=== PATIENT | female | born 1980 | race Caucasian/White ===

== ENCOUNTER → 2018-12-18 15:11 | Outpatient (CLI) | payer MEDICAID, SELFPAY ==
[2018-12-18 14:26] VITALS: BMI 25.0
[2018-12-18 15:47] LABS: Absolute Lymphocyte Count 2.02 X10^3/ul (0.83-4.51); Absolute Neutrophil Count 4.8 X10^3/uL (2.0-7.7); Basophil# 0.04 X10^3/uL; Basophil% 0.5 % (0-1); Eosinophil# 0.17 X10^3/uL; Eosinophils% 2.3 % (0-5); Hematocrit 40.3 % (37-47); Hemoglobin 13.3 g/dl (12.0-15.0); Lymphocyte # 2.02 X10^3/ul (4.0); Mean Corpuscular Hgb 29.4 pg (27.0-32.0); Mean Platelet Vol. 9.8 fl (6.2-12.0); Monocyte# 0.48 X10^3/uL; Monocyte% 6.4 % (0-10); Neutrophil # 4.75 X10^3/uL (2.7-7.7); Neutrophil % 63.7 % (47-70); Platelet Count 354 K/mm3 (150-450); RBC Distribution Width CV 12.9 % (11.6-14.6); RBC Distribution Width SD 42.1 fl (35.1-43.9); Red Blood Count 4.53 M/mm3 (4.2-5.4); White Blood Count 7.5 K/mm3 (4.4-11.0)
[2018-12-18 15:48] LABS: POSITIVE COUNT NO; POSITIVE DIFFERENTIAL NO; POSITIVE MORPHOLOGY NO
[2018-12-18 16:21] LABS: Thyroid Stim Hormone (TSH) 1.71 uIU/mL (0.358-3.74)
[2018-12-18 17:09] LABS: HIV - WCH Non-Reactive (Nonreactive)
[2018-12-18 19:05] LABS: Chlamydia Trachomatis by PCR Negative (Negative); Neisserai gonorrhoeae by PCR Negative (Negative); Probe Check PASS; Sample Adequacy Control PASS; Specimen Processing Control PASS
[2018-12-21 02:57] LABS: Rapid Plasmin Reagin (RPR) NONREACTIVE (NONREACTIVE)
[2018-12-22 00:12] LABS: HCV Quant. RNA PCR HCV Not Detected IU/mL (.); HEPATITIS B SURFACE AG Negative (Negative); Hepatitis A IgM Antibody Negative (Negative); Hepatitis B Core AB IgM Negative (Negative)
[2018-12-23 13:58] LABS: Hep C Antibodies <0.1 s/co ratio (0.0-0.9)
[2018-12-24 14:07] LABS: HPV Genotype 16, Aptima Negative (Negative)
[2018-12-25 12:26] LABS: HPV APTIMA, High Risk Positive (Negative); HPV Genotype 18,45 Aptima Negative (Negative)
== END ==
PROVIDERS: Family Provider Internal Medicine; PCP Internal Medicine; Referring Provider Obstetrics & Gynecology; Visit Provider Obstetrics & Gynecology
DX: N93.9 Abnormal uterine and vaginal bleeding, unspecified (principal); Z11.3 Encounter for screening for infections with a predominantly sexual mode of transmission; Z12.4 Encounter for screening for malignant neoplasm of cervix
CPT/HCPCS: 36415; 80074; 84439; 84443; 85025; 86592; 86703; 87491; 87522; 87591; 87624; 88175; G0145

== ENCOUNTER → 2018-12-24 12:14 | Outpatient (CLI) | payer MEDICAID, SELFPAY ==
[2018-12-18 14:26] VITALS: BMI 25.0
[2018-12-24 11:26] VITALS: BMI 25.0
--- NOTE | 2018-12-24 12:16 | US_ITS ---
STUDY: ULTRASOUND OF THE FEMALE PELVIS - COMPLETE REASON FOR EXAM: Female, 38 years old. Dysfunctional uterine bleeding since 2014. LMP: December 06, 2018. TECHNIQUE: Transabdominal and Transvaginal TECHNICAL QUALITY: Adequate. COMPARISON: CT of the abdomen and pelvis, August 01, 2016. FINDINGS: The uterus is anteverted and is in a midline position. The uterus measures 9.5 x 5.5 x 4.7 cm. Nabothian cyst is seen in the cervix. The endometrium measures 12 mm in thickness, and is heterogeneous (striated). There is no demonstrated endometrial mass. There are at least 2 fibroids identified. There is a 0.9 x 0.9 x 1.1 cm hypoechoic fibroid in the anterior right frontal wall as well as a 0.7 x 0.8 x 0.6 cm fibroid in the anterior wall. I.U.D. - The patient does not have an I.U.D. The right ovary is visualized. The right ovary measures 3.0 x 2.9 x 2.1 cm cm. There is no right ovarian cyst or ovarian mass. There is no visualized right adnexal mass or complex lesion. There is normal arterial and normal venous vascularity. The left ovary is visualized. The left ovary measures 3 x 2.5 x 2.2 cm. There is a 1.8 x 1.1 x 1.7 cm cyst. There is no visualized left adnexal mass or complex lesion. There is normal arterial and normal venous vascularity. There is no fluid in the cul-de-sac. The pre void volume of the bladder was ml. The post void volume of the bladder was ml. Polycystic ovary disease: No. US/Pelvic (Non ) IMPRESSION: 1. Prominent endometrium. Correlate with patient's menstrual cycle. 2. Normal adnexa. 3. Subserosal uterine fibroids. Electronically Signed: Dm Hanna DO at 20:44 EDT Tel [phone], Service support ,
--- NOTE | 2018-12-24 12:16 | US_ITS ---
STUDY: ULTRASOUND OF THE FEMALE PELVIS - COMPLETE REASON FOR EXAM: Female, 38 years old. Dysfunctional uterine bleeding since 2014. LMP: December 06, 2018. TECHNIQUE: Transabdominal and Transvaginal TECHNICAL QUALITY: Adequate. COMPARISON: CT of the abdomen and pelvis, August 01, 2016. FINDINGS: The uterus is anteverted and is in a midline position. The uterus measures 9.5 x 5.5 x 4.7 cm. Nabothian cyst is seen in the cervix. The endometrium measures 12 mm in thickness, and is heterogeneous (striated). There is no demonstrated endometrial mass. There are at least 2 fibroids identified. There is a 0.9 x 0.9 x 1.1 cm hypoechoic fibroid in the anterior right frontal wall as well as a 0.7 x 0.8 x 0.6 cm fibroid in the anterior wall. I.U.D. - The patient does not have an I.U.D. The right ovary is visualized. The right ovary measures 3.0 x 2.9 x 2.1 cm cm. There is no right ovarian cyst or ovarian mass. There is no visualized right adnexal mass or complex lesion. There is normal arterial and normal venous vascularity. The left ovary is visualized. The left ovary measures 3 x 2.5 x 2.2 cm. There is a 1.8 x 1.1 x 1.7 cm cyst. There is no visualized left adnexal mass or complex lesion. There is normal arterial and normal venous vascularity. There is no fluid in the cul-de-sac. The pre void volume of the bladder was ml. The post void volume of the bladder was ml. Polycystic ovary disease: No. US/Transvaginal Non- IMPRESSION: 1. Prominent endometrium. Correlate with patient's menstrual cycle. 2. Normal adnexa. 3. Subserosal uterine fibroids. Electronically Signed: Dm Hanna DO at 20:44 EDT Tel [phone], Service support ,
--- NOTE | 2018-12-24 12:26 | US_ITS ---
STUDY: THYROID ULTRASOUND REASON FOR EXAM: Female, 38 years old. Nodule felt by doctor. TECHNIQUE: Ultrasound evaluation of the thyroid was performed with real-time and static elliott-scale imaging. COMPARISON: None. FINDINGS: RIGHT LOBE: The right lobe of the thyroid gland measures 5.8 x 2.0 x 2.1 cm. There is a homogeneous echotexture. There is a 2.8 x 1.8 x 1.7 cm mixed solid and cystic nodule in the lower pole. Normal vascularity on Doppler imaging. LEFT LOBE: The left lobe of the thyroid gland measures 6.2 x 3.2 x 2.5 cm. There is a homogeneous echotexture. There is a large spongiform mass in the lower pole measuring 3.3 x 2.1 x 3.2 cm. Smaller cystic lesion with solid nodule is seen in the mid thyroid. This measures 0.4 x 0.3 x 0.4 cm. There is a small hypoechoic nodule also seen in the anterior mid thyroid measuring approximately 4 mm in diameter. Normal vascularity on Doppler imaging. ISTHMUS: The isthmus measures 0.3 cm. The regional lymph nodes are normal. US/Thyroid IMPRESSION: Bilateral thyroid nodules. The most suspicious nodule can arise as a TR 2 by ACR TIRADS classification. This is not suspicious. No FNA required. Electronically Signed: Dm Hanna DO at 20:23 EDT Tel [phone], Service support ,
== END ==
PROVIDERS: Family Provider Internal Medicine; PCP Internal Medicine; Referring Provider Obstetrics & Gynecology; Visit Provider Obstetrics & Gynecology
DX: N93.9 Abnormal uterine and vaginal bleeding, unspecified (principal); E04.1 Nontoxic single thyroid nodule
CPT/HCPCS: 76536; 76830; 76856; 93976

== ENCOUNTER → 2018-12-27 08:19 | Outpatient (CLI) | payer MEDICAID, SELFPAY ==
[2018-12-24 11:26] VITALS: BMI 25.0
--- NOTE | 2018-12-27 08:32 | EKG12_ITS ---
Test Reason : Blood Pressure : / mmHG Vent. Rate : 055 BPM Atrial Rate : 055 BPM P-R Int : 130 ms QRS Dur : 090 ms QT Int : 438 ms P-R-T Axes : 103 083 056 degrees QTc Int : 419 ms Sinus bradycardia Otherwise normal ECG Confirmed by MARIAN PAIZ, PADILLA ([id number]), editorial director GALEN BALTAZAR ([id number]) on 12/28/2018 1:48:50 PM Referred By: Orville Nelson Confirmed By:ERI FONSECA MD
[2018-12-27 10:28] LABS: ALB/GLOB Ratio 0.9 RATIO (0.9-2.4); AST(SGOT) 10 U/L (15-37); Alanine Aminotransfer ALT/SGPT 15 U/L (13-56); Albumin, Serum 3.6 g/dL (3.2-5.0); Alkaline Phosphatase 52 U/L (45-117); Anion Gap 6 (5-15); BUN 14 mg/dL (7-18); BUN/Creat Ratio 18.3 RATIO (10-20); Calcium,Total 8.6 mg/dL (8.5-10.1); Chloride 107 mmol/L (98-107); Cholesterol 145 mg/dL (200); Creatinine, Serum 0.76 mg/dL (0.55-1.02); EST Glomerular Filtration Rate 90 mL/min (>60); Est Glom Filt Rate - Afr Amer 109 mL/min (>60); Globulin 3.9 g/dL (2.2-4.2); Glucose 77 mg/dL (74-106); High Density Lipoprotein 53 mg/dL; Protein, Total 7.5 g/dL (6.4-8.2); Sodium Level 139 mmol/L (136-145); Triglycerides 74 mg/dL; Very Low Density Lipoprotein 15 mg/dL (5-40)
== END ==
PROVIDERS: Family Provider Internal Medicine; PCP Internal Medicine; Referring Provider Internal Medicine; Visit Provider Internal Medicine
DX: I10 Essential (primary) hypertension (principal)
CPT/HCPCS: 36415; 80053; 80061; 93005

== ENCOUNTER → 2019-01-05 08:00 | Outpatient (CLI) | payer MEDICAID, SELFPAY ==
--- NOTE | 2019-01-05 08:00 | ASPS_PTH ---
PATIENT: CHAPIS OLIVO LOC: [facility] U#:[id number] AGE/SX: 44/F ROOM: RE01/05/[address]: Dr. Trey Sotelo MD : 1980 BED: DIS: SPEC #: [id number] RECD: 01/05/19 11:11 STATUS: DANO REBabak #: [id number] [place]: 01/05/19 08:[address]: Trey Sotelo DEPT: CYTOLOGY RECD BY: Adrián Avendano ENTERED: 01/07/19 09:33 SP TYPE: ASPIRATION OTHR DR: Dr. Orville Nelson MD Tissues: A - Thyroid gland, NOS B - Thyroid gland, NOS Procedures: Special Stain Group II Cytology Other HEADER OPERATION: Ultrasound-guided fine needle aspiration of bilateral thyroid nodule PRE-OP DIAGNOSIS: Multinodular goiter (nontoxic) E04.2 TISSUE SUBMITTED: A - Left thyroid fine needle aspiration slides x12, B - Right thyroid fine needle aspiration slides x12 DIAGNOSIS CYTOLOGY A. Left thyroid nodule, ultrasound-guided FNA (smear): Consistent with benign follicular nodule, favor colloid nodule. Adequate for evaluation. B. Right thyroid nodule, ultrasound-guided FNA (smear): Consistent with benign follicular nodule with cystic changes, favor colloid nodule with cystic changes. Adequate for evaluation. GABO:ralph 01/08/19 COMMENT Correlation with clinical, radiologic findings and appropriate follow up are necessary. CYTOLOGY STUDY Slides are reviewed. A. The specimen consists of numerous clusters of benign follicular cells and abundant colloid. B. The specimen consists of numerous macrophages, numerous clusters of benign follicular cells, Hurthle cells and abundant colloid. CYTOLOGY GROSS A - Received are 12 smears labeled with the patient's name and designated per the requisition as left thyroid FNA. Submitted for staining. B - Received are 12 smears labeled with the patient's name and designated per the requisition as right thyroid FNA. Submitted for staining. / 01/07/19 TC: 5 CPT: 03191 x2
[2019-01-05 08:32] VITALS: BMI 25.0
== END ==
PROVIDERS: Family Provider Internal Medicine; PCP Internal Medicine; Referring Provider Surgery; Visit Provider Surgery
DX: E04.2 Nontoxic multinodular goiter (principal)
CPT/HCPCS: 88161; 88313

== ENCOUNTER 2019-03-07 07:26 | Day surgery (SDC) | payer MEDICAID, SELFPAY ==
[2019-01-28 13:41] VITALS: BMI 25.0
[2019-02-19 13:38] VITALS: BMI 26.3
[2019-03-07] VITALS (9 sets, daily range): BP systolic 108–142; BP diastolic 71–88; PULSE 71–99; RESP 16–18; TEMP 36.1–36.7; O2SAT 96–100; BMI 26.2
--- NOTE | 2019-03-07 | HYST_PTH ---
PATIENT: CHAPIS OLIVO LOC: [facility] U#:[id number] AGE/SX: 38/F ROOM: RE03/07/[address]: Dr. Kym Hilton MD : 1980 BED: DIS: 03/08/2019 SPEC #: [id number] RECD: 03/07/19 14:26 STATUS: DANO REBabak #: [id number] [place]: 03/07/19 00:[address]: Kym Hilton DEPT: SURGICAL PATHOLOGY RECD BY: Jaun Sawyer ENTERED: 03/07/19 14:26 SP TYPE: HYSTERECT OTHR DR: Dr. Orville Nelson MD Tissues: Uterus, NOS Procedures: Surgery Specimen Level V HEADER OPERATION: ERAS, vaginal hysterectomy, bilateral salpingectomy PRE-OP DIAGNOSIS: Abnormal uterine bleeding TISSUE SUBMITTED: Uterus, bilateral fallopian tubes MICROSCOPIC DIAGNOSIS Uterus, hysterectomy: Cervix - squamous metaplasia, nabothian cysts and mild chronic inflammation. Endometrium - proliferative endometrium with focal stromal breakdown Myometrium - leiomyomas and focal superficial adenomyosis. Right and left fallopian tubes - benign paratubal cysts. AM:darrius 03/08/19 MICROSCOPIC DESCRIPTION Slides are reviewed. GROSS DESCRIPTION Received in fixative is one container labeled with the patient's name and designated uterus, bilateral fallopian tubes. The specimen consists of a hysterectomy specimen consisting of uterus with cervix and detached bilateral fallopian tubes. The uterus with cervix weighs 87 gm and measures 9 x 6 x 4.5 cm. A few subserosal nodules are noted. The serosal surface is berger, glistening. The ectocervical mucosa is unremarkable. The external os is oval in contour. The endocervical canal measures 3 cm in length and the endocervical mucosa is unremarkable. The triangular endometrial cavity measures 4.5 cm in length and up to 3 cm in width. The endometrium is berger, glistening without any mass lesion and measures 2.1 cm in thickness. Sections of the uterine wall reveal multiple subserosal nodular masses. The largest mass measures 1.5 cm in greatest dimension. The uninvolved uterine wall measures up to 2 cm in thickness. Also present in the container are two detached bilateral fallopian tubes measuring 5 cm in length and 0.5 cm in diameter and 3.5 cm in length and 0.5 cm in diameter. They are not identified as right or left. The fimbrial ends are identified. Sections reveal unremarkable cut surfaces. One of the fallopian tubes show a paratubal cyst measuring 1 cm in greatest dimension. Rubber Compounder Formulator sections are submitted in nine cassettes as follows: 1 - anterior cervix, 2 - posterior cervix, 3 & 4 - anterior uterine wall, 5 & 6 - posterior uterine wall, 7 - nodular masses, 8 & 9 - bilateral fallopian tubes with each containing one fallopian tube, 9 also contains the paratubal cyst. / SJ:darrius 03/07/19 TC:1 CPT: 49849
--- NOTE | 2019-03-07 04:47 | PCM.HPOB.BLA ---
- Problem List (1) Abnormal Pap smear of cervix Status: Acute (2) Abnormal Pap smear of cervix Status: Acute Comment: repeat pap 12/2019 (3) Anxiety and depression Status: Acute (4) Back problem Status: Acute (5) Fatigue Status: Acute (6) H/O tubal ligation Status: Acute Comment: 2014 (7) History of dental surgery Status: Acute (8) Hx of biopsy Status: Acute Comment: FNA bilateral thyroid- 01/05/19 (9) Thyroid nodule Status: Acute (10) Abnormal uterine bleeding Status: Chronic Comment: plan tv bs (11) Hypertension Status: Chronic History and Physical Date of Admission: 03/07/19 ADDENDUM Addendum entered and electronically signed by Kym Hilton MD 02/19/19 14:06: Assessment & Plan Problems 1. Abnormal uterine bleeding N93.9 plan [facility] bs 2. Hypertension I10 3. Abnormal Pap smear of cervix R87.619 repeat pap 12/2019 Plan - Kym Hilton MD plan [facility] bs. After discussing the patient's diagnosis and treatment plan options, patient wishes to proceed with surgical management. I have discussed with the patient the risks, benefits, and alternatives of the procedure which include but are not limited to risks of anesthesia, bleeding, infection, possible damage to bowel, bladder, or surrounding vasculature which could lead to additional surgery to evaluate any complications. Patient agrees to procedure and wishes to proceed. ACOG/uptodate references given for additional information regarding procedure. Intake Vital Signs 02/19/19 Height 5 ft 1 in 02/19/19 Weight: 139 lb 8 oz 02/19/19 Body Mass Index (BMI) 26.3 02/19/19 Blood Pressure 136/98 H 02/19/19 Body Mass Index (BMI) 25.0 01/30/19 Body Mass Index (BMI) 25.0 Intake Visit Reasons: CLARI DUVAL BS Forestry Patrolman Required: No Is patient in pain?: No Allergies No Known Allergies Allergy (Verified 02/19/19 13:39) Medications blood pressure monitor kit See Rx Instructions .ROUTE .MEDSUPPLY #1 ea 12/24/18 [Rx Confirmed 02/19/19] hydrochlorothiazide 25 mg tablet 25 mg PO DAILY #30 tab 12/24/18 [Rx Confirmed 02/19/19] nicotine 14 mg/24 hr daily transdermal patch 14 mg TRANSDERMAL QDAY #42 patch 02/01/19 [Rx Confirmed 02/19/19] nicotine 7 mg/24 hr daily transdermal patch 1 patch TRANSDERMAL Q24H #14 patch 02/01/19 [Rx Confirmed 02/19/19] Post menopausal: No Patient : No : No PFSH Medical History Back problem (Acute) Fatigue (Acute) Hypertension (Chronic) Anxiety and depression (Acute) Abnormal Pap smear of cervix (Acute) Surgical History Hx of biopsy (Acute) History of dental surgery (Acute) H/O tubal ligation (Acute) Family History Mother Hypertension Anxiety and depression Cancer pre cervical cancer Father Diabetes Heart disease Hypertension Anxiety and depression Hyperlipemia Myocardial infarction, Onset Age: 40 Daughter Cancer ALL Social History (Updated 02/19/19 @ 14:06 by Kym Hilton MD) Smoking Status: Current every day smoker Tobacco: How many years used: 25 alcohol intake: current details: social substance use type: marijuana caffeine: Yes what type of physical activity do you participate in: none seatbelt use: always do you feel safe at home: Yes HPI [facility] BS: Details: CHAPIS OLIVO is a 38 year old who presents for preop appointment. she is planning a [facility] bs. Pregancy History 4 Elective abortions Hx Para 4 Spontaneous abortions Hx # Term Pregnancies Ectopic pregnancies Hx # Pregnancies Multiple births # of living children Past Pregnancies Del. Date Name GA/Weeks Outcome Route Bth Weight Infant Gen Labor Lgth Anesthesia Del Locatn Provider FOB Unknown 1998 Pattie Unknown Patricio 2004 Unknown Thierry Sung 2013 Unknown Diana 2014 Assessment & Plan Problems 1. Abnormal uterine bleeding N93.9 plan [facility] bs 2. Hypertension I10 3. Abnormal Pap smear of cervix R87.619 repeat pap 12/2019 Plan plan [facility] bs. After discussing the patient's diagnosis and treatment plan options, patient wishes to proceed with surgical management. I have discussed with the patient the risks, benefits, and alternatives of the procedure which include but are not limited to risks of anesthesia, bleeding, infection, possible damage to bowel, bladder, or surrounding vasculature which could lead to additional surgery to evaluate any complications. Patient agrees to procedure and wishes to proceed. ACOG/uptodate references given for additional information regarding procedure. Coding Level of Care Code No Charge Diagnoses Abnormal uterine bleeding N93.9 Hypertension I10 Abnormal Pap smear of cervix R87.619
[2019-03-07 07:53] LABS: Internal QC Validated? YES +Cl - CLEAR BKGD; Pregnancy, Urine Negative Negative
[2019-03-07 07:56] LABS: Hematocrit 45.6 % (37-47); Mean Corp Hgb Conc 32.9 g/dL (32-36); Mean Corpuscular Hgb 29.5 pg (27.0-32.0); Mean Corpuscular Volume 89.6 fL (81-99); Mean Platelet Vol. 9.4 fl (6.2-12.0); Platelet Count 363 K/mm3 (150-450); RBC Distribution Width CV 12.2 % (11.6-14.6); RBC Distribution Width SD 40.4 fl (35.1-43.9); Red Blood Count 5.09 M/mm3 (4.2-5.4); White Blood Count 8.5 K/mm3 (4.4-11.0)
[2019-03-07] MEDS: Phenazopyridine 95 MG Tablet 190 MG PO (08:11)
[2019-03-07] MEDS: Scopolamine 1mg/72hr Patch 1 PATCH TRANSDERM. (08:13)
[2019-03-07] MEDS: dexAMETHasone 10 MG/ML Vial 8 MG IV (08:15)
[2019-03-07] MEDS: Magnesium Sulfate 4gm/100mL 4 GM/100 ML IV.SOLN. IV (08:16)
[2019-03-07 08:21] LABS: Bedside Glucose 91 mg/dL (70-110)
[2019-03-07] MEDS: Enoxaparin 40 MG/0.4 ML Syringe SC (08:27)
[2019-03-07] MEDS: Lactated Ringers 1,000 ML 40 ML IV (08:27)
[2019-03-07] MEDS: Cefazolin 2 GM in 0.9% Normal Saline 100 ML IV (11:04)
[2019-03-07] MEDS: Vasopressin 20 UNITS/ML Vial (12:15)
[2019-03-07] MEDS: Ketorolac 30 MG/ML Syringe IM (13:42)
--- NOTE | 2019-03-07 13:52 | OP.PCM_ITS ---
Problem List (1) Abnormal Pap smear of cervix Status: Acute (2) Abnormal Pap smear of cervix Status: Acute Comment: repeat pap 12/2019 (3) Anxiety and depression Status: Acute (4) Back problem Status: Acute (5) Fatigue Status: Acute (6) H/O tubal ligation Status: Acute Comment: 2014 (7) History of dental surgery Status: Acute (8) Hx of biopsy Status: Acute Comment: FNA bilateral thyroid- 01/05/19 (9) Thyroid nodule Status: Acute (10) Abnormal uterine bleeding Status: Chronic Comment: plan [facility] bs (11) Hypertension Status: Chronic Report of Operation Date of Procedure: 03/08/19 Pre-Operative Diagnosis: aub Post-Operative Diagnosis: same Surgery/Procedure Performed:: tvh bs Description of Surgical Findings:: nl uterus tubes, apical prolapse grade I enlarged genital hiatus cyber transport systems specialist: Chana Hillman Type of Anesthesia:: General Special Medications: none Specimen's removed: uterus tubes Drains: kang Estimated Blood Loss (mL): 100 Fluids Replaced: crystalloid Description of Procedure: Patient was taken to the operating room and was placed under general anesthesia was prepped and draped in normal sterile fashion in the dorsal lithotomy position. Preoperative antibiotics and SCDs and Kang catheter was placed inside the bladder. Weighted speculum was placed in the vagina and the anterior and posterior lip of the cervix was grasped with 2 Emily clamps and circumferentially injected with dilute vasopressin. A circumferential incision was made with a scalpel and the posterior cul-de-sac was entered into sharply and a longneck speculum was placed. The anterior cul-de-sac was also dissected down and entered into sharply and the uterosacral ligaments were clamped cut and suture ligated bilaterally followed by the cardinal ligaments which were Clamped cut and suture ligated bilaterally with 0 Monocryl. The uterus serially descended and progressive bites were taken bilaterally up to the level of the utero-ovarian ligament bilaterally which was clamped transected and double ligated with 0 Monocryl suture and 0 Vicryl free tie. Bilateral fallopian tubes and ovaries were well visualized and noted be within normal limits and the bilateral fallopian tubes were transected across the base with a Rosy clamp and removed and sutured with 0 Vicryl suture. Excellent hemostasis was noted. Posterior peritoneum was reapproximated with 2-0 Vicryl and a modified Turner stitch was placed through the posterior vaginal cuff and bilateral uterosacral ligaments across the posterior cul-de-sac skimming along to provide apical support to the vagina. The vagina was closed with [id number] 0 Vicryl pop offs including the posterior and anterior peritoneum in the reapproximation. Excellent hemostasis was noted. All instruments removed from the vagina clear urine was noted at the end of the procedure and patient was awoken and taken recovery in stable condition. Grafts/Implants Used: none - Complications none - Admit VTE Documentation VTE Present on Admission: No
[2019-03-07] MEDS: Lactated Ringers 1,000 ML 70 ML IV (14:07)
[2019-03-07] MEDS: oxyCODONE 5 MG Tablet PO ×3 (14:52→20:59)
[2019-03-07] MEDS: Ondansetron ODT 4 MG Tablet PO ×2 (16:00→23:16)
[2019-03-07] MEDS: Acetaminophen 500 MG Tablet 1000 MG PO ×2 (17:44→23:17)
[2019-03-07] MEDS: Ketorolac 30 MG/ML Syringe IV ×2 (17:44→23:39)
[2019-03-08 00:05] VITALS: BP 126/77; PULSE 77; RESP 16; TEMP 36.8; O2SAT 96
[2019-03-08 05:35] VITALS: BP 128/64; PULSE 78; RESP 16; TEMP 36.9; O2SAT 96
[2019-03-08] MEDS: Acetaminophen 500 MG Tablet 1000 MG PO ×2 (05:37→12:46)
[2019-03-08] MEDS: Ketorolac 30 MG/ML Syringe IV ×2 (05:37→12:48)
[2019-03-08 06:42] LABS: Hematocrit 34.1 % (37-47); Hemoglobin 11.2 g/dL (12.0-15.0); Mean Corp Hgb Conc 32.8 g/dL (32-36); Mean Corpuscular Hgb 29.5 pg (27.0-32.0); Mean Corpuscular Volume 89.7 fL (81-99); Mean Platelet Vol. 9.8 fl (6.2-12.0); Platelet Count 280 K/mm3 (150-450); RBC Distribution Width CV 12.8 % (11.6-14.6); White Blood Count 16.9 K/mm3 (4.4-11.0)
[2019-03-08] MEDS: Docusate Sodium 100 MG Capsule PO (08:59)
[2019-03-08] MEDS: Enoxaparin 40 MG/0.4 ML Syringe SC (08:59)
--- NOTE | 2019-03-08 08:59 | PCM.PN.OB ---
Subjective: patient recovering well, denies CP, SOB, N, or V. patient is ambulating, voiding ,tolerating adequate po, and pain is controlled with oral medications. - Physical Exam Vital Signs Temp Pulse Resp BP Pulse Ox 98.5 F 78 16 128/64 H 96 03/08/19 05:35 03/08/19 05:35 03/08/19 05:35 03/08/19 05:35 03/08/19 05:35 Oxygen Flow Rate (L/min) 6 Oxygen Delivery Method Room Air Weight: 139 lb 1.787 oz Body Mass Index (BMI) 26.2 Intake and Output for Last 24 Hours 03/06/19 03/07/19 03/08/19 23:59 23:59 23:59 Intake Total 596.45 / 596.45 600 / 600 Output Total 500 / 800 700 / 700 Balance 96.45 / -203.55 -100 / -100 Laboratory Tests Past 24 Hrs 03/07/19 03/08/19 07:45 06:32 WBC 16.9 H RBC 3.80 L Hgb 11.2 L Hct 34.1 L MCV 89.7 MCH 29.5 MCHC 32.8 RDW Std Deviation 42.0 RDW Coeff of Pura 12.8 Plt Count 280 MPV 9.8 Blood Type O POSITIVE Antibody Screen NEGATIVE Medical Necessity - Tobacco Use Smoking Status: Current every day smoker Assessment/Plan All Active Problems (Last Updated 02/19/19 @ 14:03 by Kym Hilton MD) Hx of biopsy (Acute) Back problem (Acute) Fatigue (Acute) History of dental surgery (Acute) Anxiety and depression (Acute) Abnormal Pap smear of cervix (Acute) H/O tubal ligation (Acute) Abnormal Pap smear of cervix (Acute) Thyroid nodule (Acute) Hypertension (Resolved) patient is s/p tvh POD 1 1. routine ERAS protocol postop care- increase ambulation, encourage oral intake and oral control of pain. lovenox and scds for dvt prophylaxis, patient stable for discharge to home.
--- NOTE | 2019-03-08 09:00 | PCM.DC.VHY ---
Discharge Diet: No Restrictions Discharge Activity: Return to Normal Activity, May Not Drive, May Shower May resume sexual activity in: 6-8 weeks Call your doctor if your incision/area has: Continuous Slow Oozing, Sudden Increased Bleeding, Increased Pain/ Swelling, Increased Redness, Foul Smelling Discharge Call your doctor if you observe: Fever of 101 or Higher, Inability to urinate, Inability to have a bowel movement, Using more than one pad per hour Allergies/Adverse Reactions: Allergies No Known Allergies Allergy (Verified 03/07/19 07:29) Medications to take at Discharge hydrochlorothiazide 25 mg tablet 25 mg PO DAILY #30 tab 12/24/18 nicotine 14 mg/24 hr daily transdermal patch 14 mg TRANSDERMAL QDAY #42 patch 02/01/19 nicotine 7 mg/24 hr daily transdermal patch 1 patch TRANSDERMAL Q24H #14 patch 02/01/19 Naproxen [Naprosyn] 250 - 500 mg PO Q8H PRN PRN #30 tab 03/08/19 Oxycodone HCl/Acetaminophen [Percocet 5-325] 1 - 2 tab PO Q4H PRN PRN 7 Days #15 tab 03/08/19 The following prescriptions were given: Naproxen [Naprosyn] 250 - 500 mg PO Q8H PRN PRN #30 tab PRN Reason: MILD PAIN Transmission Status: Received by [facility] Oxycodone HCl/Acetaminophen [Percocet 5-325] 1 - 2 tab PO Q4H PRN PRN 7 Days #15 tab PRN Reason: Pain Transmission Status: Received by [facility] Primary Care Physician: Orville Nelson MD [Primary Care Provider] - Test Results: Test results from this visit will be discussed in further detail at your follow-up appointment, if applicable. Please Follow Up With: Kym Hilton MD - [phone]
[2019-03-08] MEDS: oxyCODONE 5 MG Tablet PO (09:08)
[2019-03-08 09:13] VITALS: BP 113/74; PULSE 59; RESP 16; TEMP 37; O2SAT 98
[2019-03-08 13:01] VITALS: BP 118/75; PULSE 60; RESP 16; TEMP 36.7; O2SAT 100
== END 2019-03-08 15:05 | disposition home or self-care (01) ==
LOC: SDC 07:27 → AC 07:29 → MS3 08:02
PROVIDERS: Family Provider Internal Medicine; PCP Internal Medicine; Referring Provider Obstetrics & Gynecology; Visit Provider Obstetrics & Gynecology
PROC: (CPT 58260; principal; 2019-03-07 09:15)
DX: N93.9 Abnormal uterine and vaginal bleeding, unspecified (principal); N88.8 Other specified noninflammatory disorders of cervix uteri; N80.0 Endometriosis of uterus; I10 Essential (primary) hypertension; Z79.899 Other long term (current) drug therapy; F17.200 Nicotine dependence, unspecified, uncomplicated
CPT/HCPCS: 00940; 58262; 36415; 81025; 82962; 85027; 86850; 86900; 86901; 88307; 94762; 99406; J7120; J2405

== ENCOUNTER → 2019-08-29 15:15 | Outpatient (CLI) | payer MEDICAID, SELFPAY ==
[2019-08-29 14:39] VITALS: BMI 26.2
[2019-08-29 16:47] LABS: Absolute Lymphocyte Count 2.19 X10^3/uL (0.83-4.51); Absolute Neutrophil Count 4.8 X10^3/uL (2.0-7.7); Basophil# 0.05 X10^3/uL; Basophil% 0.6 % (0-1); Eosinophil# 0.19 X10^3/uL; Eosinophils% 2.4 % (0-5); Hematocrit 42.9 % (37-47); Hemoglobin 13.9 g/dL (12.0-15.0); Lymphocyte # 2.19 X10^3/ul (4.0); Lymphocyte % 28.1 % (19-41); Mean Corp Hgb Conc 32.4 g/dL (32-36); Mean Corpuscular Hgb 27.8 pg (27.0-32.0); Mean Corpuscular Volume 85.8 fL (81-99); Mean Platelet Vol. 9.8 fl (6.2-12.0); Monocyte# 0.54 X10^3/uL; Monocyte% 6.9 % (0-10); NRBC Flagged by Analyzer 0 % (0-5); Neutrophil # 4.79 X10^3/uL (2.7-7.7); Neutrophil % 61.7 % (47-70); Platelet Count 357 K/mm3 (150-450); RBC Distribution Width CV 14.4 % (11.6-14.6); RBC Distribution Width SD 45.2 fl (35.1-43.9); White Blood Count 7.8 K/mm3 (4.4-11.0)
[2019-08-29 17:03] LABS: ALB/GLOB Ratio 0.8 RATIO (0.9-2.4); AST(SGOT) 23 U/L (15-37); Alanine Aminotransfer ALT/SGPT 42 U/L (13-56); Albumin, Serum 3.7 g/dL (3.2-5.0); Alkaline Phosphatase 79 U/L (45-117); Anion Gap 6 (5-15); BUN 12 mg/dL (7-18); BUN/Creat Ratio 14.4 RATIO (10-20); Calcium,Total 8.9 mg/dL (8.5-10.1); Chloride 101 mmol/L (98-107); Cholesterol 173 mg/dL (200); Creatinine, Serum 0.84 mg/dL (0.55-1.02); EST Glomerular Filtration Rate 81 mL/min (>60); Est Glom Filt Rate - Afr Amer 98 mL/min (>60); Globulin 4.8 g/dL (2.2-4.2); Glucose 71 mg/dL (74-106); High Density Lipoprotein 51 mg/dL; Potassium 3.5 mmol/L (3.5-5.1); Protein, Total 8.5 g/dL (6.4-8.2); Sodium Level 135 mmol/L (136-145); Triglycerides 129 mg/dL; Very Low Density Lipoprotein 26 mg/dL (5-40)
== END ==
PROVIDERS: PCP Internal Medicine; Referring Provider Internal Medicine; Visit Provider Internal Medicine
DX: F41.8 Other specified anxiety disorders (principal); I10 Essential (primary) hypertension
CPT/HCPCS: 36415; 80053; 80061; 85025

== ENCOUNTER → 2019-12-11 09:28 | Outpatient (CLI) | payer MEDICAID, SELFPAY ==
[2019-12-11 09:06] VITALS: BMI 25.3
[2019-12-11 12:49] LABS: Anion Gap 4 (5-15); BUN 10 mg/dL (7-18); BUN/Creat Ratio 12.7 RATIO (10-20); Calcium,Total 8.8 mg/dL (8.5-10.1); Chloride 105 mmol/L (98-107); Creatinine, Serum 0.79 mg/dL (0.55-1.02); EST Glomerular Filtration Rate 86 mL/min (>60); Est Glom Filt Rate - Afr Amer 104 mL/min (>60); Glucose 84 mg/dL (74-106); Potassium 4.3 mmol/L (3.5-5.1); Sodium Level 137 mmol/L (136-145)
== END ==
PROVIDERS: PCP Internal Medicine; Referring Provider Internal Medicine; Visit Provider Internal Medicine
DX: I10 Essential (primary) hypertension (principal)
CPT/HCPCS: 36415; 80048

== ENCOUNTER 2020-02-26 17:25 | Emergency (ER) | payer MEDICAID, SELFPAY ==
[2019-12-11 09:06] VITALS: BMI 25.3
[2020-02-26 17:27] VITALS: BP 146/66; PULSE 92; RESP 24; TEMP 36.5; O2SAT 100; BMI 40.6
--- NOTE | 2020-02-26 18:12 | EKG12_ITS ---
Test Reason : CP Blood Pressure : / mmHG Vent. Rate : 095 BPM Atrial Rate : 095 BPM P-R Int : 150 ms QRS Dur : 090 ms QT Int : 374 ms P-R-T Axes : 059 077 044 degrees QTc Int : 469 ms Normal sinus rhythm Normal ECG Confirmed by COLT PAIZ, ESTRELLA ([id number]), story editor ELIZABETH EARLY ([id number]) on 03/02/2020 1:26:52 PM Referred By: BRIDGER Confirmed By:ESTRELLA GREGORY MD
--- NOTE | 2020-02-26 18:12 | ED.VIS.GEN ---
History of Present Illness Chief Complaint: Chest Other Informant: Patient Onset: Days - 9 days Context: Gradual Onset Timing: Intermittent Current Severity: Moderate Maximum Severity: Moderate Narrative: Patient presents with a 9-day history of intermittent sharp chest pain with intermittent shortness of breath and palpitations. She states she feels very fatigued. Patient is not sure if this may be related to her anxiety. She does report episodes of having her lips and extremities go numb and tingly. She has had episodes where she felt like she was going to pass out. - Past Medical History (1) Anxiety and depression Status: Chronic (2) H/O tubal ligation Status: Chronic Comment: 2014 (3) Hypertension Status: Chronic Past Medical History - Allergies and Home Meds Allergies/Adverse Reactions: Allergies No Known Allergies Allergy (Verified 02/26/20 17:26) Primary Care Physician: Orville Nelson MD [Primary Care Provider] - Prior records reviewed: Yes Smoking Status: Current every day smoker Review of Systems General: Denies: Chills, Fever Eyes: Denies: Visual changes - bilaterally ENT: Denies: Bilateral ear pain Cardiovascular: Reports: Chest pain, Palpitations Respiratory: Reports: Dyspnea. Denies: Cough Gastrointestinal: Denies: Abdominal pain, Nausea, Vomiting, Diarrhea Musculoskeletal: Denies: Extremity Pain Skin: Denies: Rash, Wounds Neurological: Reports: Parasthesia Psych: Reports: Anxiety Hematologic: Denies: Easy bruising Allergy: Denies: Uticaria Physical Exam Vital Signs/Narrative: Vital Signs Temp Pulse Resp BP Pulse Ox 02/26/20 17:27 97.7 F L 92 24 H 146/66 H 100 Inital Vital Signs reviewed: Yes General: Well nourished, Well developed Head: Normocephalic ENT: Moist mucous membranes Neck: Supple Cardiovascular: Regular rate, Regular rhythm Respiratory: No distress, CTA bilaterally Abdomen: Soft, Nontender, Normal bowel sounds Skin: Normal color Neurological: Alert, Oriented x3 Psychological: Normal affect Diagnostic/Tx/Re-eval Impressions Chest X-Ray 02/26/20 19:00 IMPRESSION: Normal x-ray examination of the chest. Electronically Signed: Eugene Blandon DO at 19:12 EDT Tel [phone], Service support , 02/26/20 19:00 Chest 1 View (Portable) [RAD] Stat Laboratory Results 02/26/20 02/26/20 02/26/20 18:55 18:55 18:55 WBC 10.4 RBC 4.68 Hgb 13.8 Hct 41.1 MCV 87.8 MCH 29.5 MCHC 33.6 RDW Std Deviation 38.0 RDW Coeff of Pura 11.8 Plt Count 410 MPV 9.6 Immature Gran % (Auto) 0.300 Neut % (Auto) 63.9 Lymph % (Auto) 27.9 [place] % (Auto) 5.5 Eos % (Auto) 1.7 Baso % (Auto) 0.7 Absolute Neuts (auto) 6.6 Absolute Lymphs (auto) 2.89 Nucleated RBC % 0 D-Dimer Quant (PE/DVT) 0.35 Sodium 137 Potassium 3.8 Chloride 107 Carbon Dioxide 28.0 Anion Gap 2 L BUN 10 Creatinine 0.70 Estim Creat Clear Calc 81.42 Est GFR (MDRD) Af Amer 120 Est GFR (MDRD) Non-Af 99 BUN/Creatinine Ratio 14.3 Glucose 83 Calcium 9.2 Troponin I < 0.015 TSH 1.71 - EKG Initial EKG Interpretation: Sinus Rhythm - Sinus at 95 with no acute ischemia. - Medical Decision Making Patient was given aspirin along with 0.5 mg of p.o. Ativan. On repeat evaluation she does feel improved. Should be given Vistaril to help with her anxiety. She states that she does have Prozac that her doctor has been wanting her to take regularly. At this time I do not feel any further cardiac work-up is needed. ED Disposition - Plan for ED Patient: Disposition: Home or Assisted Living Diagnosis: Atypical chest pain, Anxiety Instructions: ED Chest Pain Atypical Unkn Cause, ED Stress React Prescriptions: hydrOXYzine pamoate capsule [Vistaril] 25 mg PO BID PRN PRN #14 cap PRN Reason: Anxiety Transmission Status: Pending to [facility] . Referrals: Orville Nelson MD [Primary Care Provider] - 1 Week
[2020-02-26] MEDS: Aspirin 81 MG TAB.CHEW 324 MG PO (18:39)
[2020-02-26] MEDS: LORazepam 0.5 MG Tablet PO (18:39)
[2020-02-26] MEDS: 0.9% Normal Saline 1,000 ML 150 ML IV (18:58)
--- NOTE | 2020-02-26 19:00 | RAD_ITS ---
STUDY: X-RAY CHEST REASON FOR EXAM: Female, 39 years old. SOB, CHEST TIGHTNESS, FATIGUE SINCE MONDAY. TINGLING IN LIPS, AND HYPERVENTILATION ON TRIAGE. and quot;I THINK ITS MY ANXETY. and quot; TECHNIQUE: Frontal view COMPARISON: None. FINDINGS: The lungs are clear and expanded. There is no demonstrated pleural abnormality. Normal size heart. Normal mediastinum and sy. Normal visualized pulmonary arteries. Normal visualized aortic arch and descending thoracic aorta. Normal visualized thoracic spine. Normal visualized ribs, clavicles, and shoulders. There is no demonstrated abnormality of the visualized soft tissue structures of the upper abdomen. RAD/Chest 1 View (Portable) IMPRESSION: Normal x-ray examination of the chest. Electronically Signed: Eugene Blandon DO at 19:12 EDT Tel [phone], Service support ,
[2020-02-26 19:13] LABS: Absolute Lymphocyte Count 2.89 X10^3/uL (0.83-4.51); Absolute Neutrophil Count 6.6 X10^3/uL (2.0-7.7); Basophil# 0.07 X10^3/uL; Basophil% 0.7 % (0-1); Eosinophil# 0.18 X10^3/uL; Eosinophils% 1.7 % (0-5); Hematocrit 41.1 % (37-47); Hemoglobin 13.8 g/dL (12.0-15.0); Lymphocyte # 2.89 X10^3/ul (4.0); Lymphocyte % 27.9 % (19-41); Mean Corp Hgb Conc 33.6 g/dL (32-36); Mean Corpuscular Hgb 29.5 pg (27.0-32.0); Mean Corpuscular Volume 87.8 fL (81-99); Mean Platelet Vol. 9.6 fl (6.2-12.0); Monocyte# 0.57 X10^3/uL; Monocyte% 5.5 % (0-10); NRBC Flagged by Analyzer 0 % (0-5); Neutrophil # 6.63 X10^3/uL (2.7-7.7); Neutrophil % 63.9 % (47-70); Platelet Count 410 K/mm3 (150-450); RBC Distribution Width CV 11.8 % (11.6-14.6); Red Blood Count 4.68 M/mm3 (4.2-5.4); White Blood Count 10.4 K/mm3 (4.4-11.0)
[2020-02-26 19:49] VITALS: BP 132/85; PULSE 85; RESP 16; O2SAT 98
[2020-02-26 19:50] LABS: Anion Gap 2 (5-15); BUN 10 mg/dL (7-18); BUN/Creat Ratio 14.3 RATIO (10-20); Calcium,Total 9.2 mg/dL (8.5-10.1); Chloride 107 mmol/L (98-107); D-Dimer Quantitative (DVT/PE) 0.35 FEU/ug/m (0.27-0.49); EST Glomerular Filtration Rate 99 mL/min (>60); Est Glom Filt Rate - Afr Amer 120 mL/min (>60); Estimated Creatinine Clearance 81.42 ml/min; Glucose 83 mg/dL (74-106); Potassium 3.8 mmol/L (3.5-5.1); Sodium Level 137 mmol/L (136-145); Thyroid Stim Hormone (TSH) 1.71 uIU/mL (0.358-3.74)
[2020-02-26 20:27] VITALS: RESP 18
== END 2020-02-26 20:28 | disposition home or self-care (01) ==
PROVIDERS: Emergency Provider Emergency Medicine; PCP Internal Medicine
DX: R07.89 Other chest pain (principal); F41.9 Anxiety disorder, unspecified; R06.02 Shortness of breath; R00.2 Palpitations; R53.83 Other fatigue; I10 Essential (primary) hypertension; F32.9 Major depressive disorder, single episode, unspecified; F17.200 Nicotine dependence, unspecified, uncomplicated; Z79.899 Other long term (current) drug therapy
CPT/HCPCS: 71045; 80048; 84443; 84484; 85025; 85379; 93005; 96360; 99285; A4216

== ENCOUNTER → 2020-09-23 | Outpatient (CLI) | payer MEDICAID, SELFPAY ==
[2020-09-22 11:22] VITALS: BMI 29.5
[2020-09-24 20:07] LABS: Chlamydia By Nucleic Acid AMP Negative (Negative)
[2020-09-25 13:02] LABS: Gonococcus By Nucleic Acid AMP Negative (Negative)
== END | disposition home or self-care (01) ==
LOC: LABSPEC 13:01
PROVIDERS: PCP Internal Medicine; Referring Provider Obstetrics & Gynecology; Visit Provider Obstetrics & Gynecology
DX: Z11.3 Encounter for screening for infections with a predominantly sexual mode of transmission (principal); N89.8 Other specified noninflammatory disorders of vagina
CPT/HCPCS: 87070; 87205; 87491; 87591

== ENCOUNTER → 2020-10-02 11:49 | Outpatient (CLI) | payer MEDICAID, SELFPAY ==
[2020-03-06 10:40] VITALS: BMI 40.6
[2020-09-22 11:22] VITALS: BMI 29.5
--- NOTE | 2020-10-02 11:51 | BI_ITS ---
MAMMOGRAPHY - BILATERAL SCREENING REASON FOR EXAM: Female, 40 years old. Routine annual screening examination. PERTINENT HISTORY: Grandmother with breast cancer. TECHNIQUE: Digital bilateral breast karina (3D mammographic acquisition) in the CC and MLO projections. 2-D mediolateral oblique (MLO) and craniocaudad (CC) views of both breasts were obtained. CAD: Full Field Digital Mammography with Computer Added Detection was performed. COMPARISON: None. Baseline examination. FINDINGS: Breast Composition: The breasts are heterogeneously dense, which may obscure small masses. There is a 7.8 mm x 11.9 mm slightly lobulated nodular density in the upper deep slightly medial aspect of the left breast. Correlation with ultrasound is recommended. No other significant abnormalities are identified. BI/SCRN MAMM (CAD)W/KARINA BILAT IMPRESSION: 7.8 mm x 11.9 mm slightly lobulated nodular density in the upper deep slightly medial aspect of the left breast. Correlation with ultrasound is recommended. ASSESSMENT CATEGORY: BIRADS Category 0: Incomplete. Need additional imaging evaluation. A letter regarding these results will be sent to the patient by the facility within 30 days. Approximately 10% of breast cancers are not detected by mammography. A normal mammogram should not delay biopsy of a clinically suspicious abnormality. [id number] Electronically Signed: Dustin Van MD at 12:24 EDT , Service support ,
== END ==
PROVIDERS: PCP Internal Medicine; Referring Provider Obstetrics & Gynecology; Visit Provider Obstetrics & Gynecology
DX: Z12.31 Encounter for screening mammogram for malignant neoplasm of breast (principal)
CPT/HCPCS: 77063; 77067

== ENCOUNTER → 2020-10-06 10:43 | Outpatient (CLI) | payer MEDICAID, SELFPAY ==
[2020-09-22 11:22] VITALS: BMI 29.5
--- NOTE | 2020-10-06 10:45 | US_ITS ---
STUDY: ULTRASOUND BREAST - LEFT REASON FOR EXAM: Female, 40 years old. Abnormal screening mammogram. TECHNIQUE: Axial and longitudinal images of the LEFT breast were performed with a high resolution ultrasound transducer. # OF IMAGES: 53 COMPARISON: Comparison is made with prior mammogram dated 10/02/2020. FINDINGS: LEFT Breast: There is a 1 cm x 0.9 cm by 0.4 cm well-defined hypoechoic solid nodule at the 12:30 position of the breast at 3 cm from nipple. Increased flow is seen. This most likely represents a fibroadenoma although a biopsy is recommended. Multiple small cysts are also seen at the 12 and 11 o''clock position of the breast. The largest cyst measures 1.1 cm x 1.3 cm x 0.4 cm. US/Breast Limited Unilateral IMPRESSION: Multiple small cysts as described. There is a 1 cm x 0.9 cm x 0.4 cm well-defined hypoechoic solid nodule at the 12:30 position of the breast at 3 cm from nipple. Increased flow is seen. A biopsy recommended. ASSESSMENT CATEGORY: BIRADS Category 4: Suspicious - Biopsy Should Be Considered. A letter regarding these results will be sent to the patient by the facility within 30 days. Electronically Signed: Dustin Van MD at 12:42 EDT , Service support ,
== END ==
PROVIDERS: PCP Internal Medicine; Referring Provider Obstetrics & Gynecology; Visit Provider Obstetrics & Gynecology
DX: N63.25 Unspecified lump in the left breast, overlapping quadrants (principal)
CPT/HCPCS: 76642

== ENCOUNTER → 2020-10-14 | Outpatient (CLI) | payer MEDICAID, SELFPAY ==
--- NOTE | 2020-10-14 | BRBX_PTH ---
PATIENT: CHAPIS OLIVO LOC: [facility] U#:[id number] AGE/SX: 40/F ROOM: RE10/14/[address]: Dr. New Johnson MD : 1980 BED: DIS: 10/14/2020 SPEC #: [id number] RECD: 10/14/20 15:10 STATUS: DANO REBabak #: [id number] [place]: 10/14/20 00:[address]: New Johnson DEPT: SURGICAL PATHOLOGY RECD BY: Jaun Sawyer ENTERED: 10/15/20 08:42 SP TYPE: BREAST BX OTHR DR: Dr. Orville Nelson MD Tissues: Left breast, NOS Procedures: Surgery Specimen Level IV HEADER OPERATION: Ultrasound-guided left breast biopsy PRE-OP DIAGNOSIS: Abnormal ultrasound of breast TISSUE SUBMITTED: Left breast tissue biopsy MICROSCOPIC DIAGNOSIS Left breast, ultrasound-guided core biopsy: Changes suggestive of fibroadenoma. Mild duct ectasia. No evidence of malignancy. AM:darrius 10/16/2020 MICROSCOPIC DESCRIPTION Slides are reviewed. GROSS DESCRIPTION Received in fixative is one container labeled with the patient name and designated left breast biopsy. The specimen consists of multiple fragments of berger-yellow fibroadipose tissue that in aggregate measure 1 x 0.5 x 0.1 cm. The entire specimen is submitted in one cassette. / SJ:darrius 10/15/20 TC:5 CPT: 93010
[2020-10-14 11:09] VITALS: BMI 30.9
== END | disposition home or self-care (01) ==
LOC: LABSPEC 15:24
PROVIDERS: PCP Internal Medicine; Visit Provider Surgery
DX: R92.8 Other abnormal and inconclusive findings on diagnostic imaging of breast (principal)
CPT/HCPCS: 88305

== ENCOUNTER → 2020-10-26 11:31 | Outpatient (CLI) | payer MEDICAID, SELFPAY ==
[2020-10-14 11:09] VITALS: BMI 30.9
--- NOTE | 2020-10-26 11:32 | US_ITS ---
STUDY: THYROID ULTRASOUND REASON FOR EXAM: Female, 40 years old. Thyroid Nodule TECHNIQUE: Ultrasound evaluation of the thyroid was performed with real-time and static elliott-scale imaging. COMPARISON: 12/24/2018 FINDINGS: RIGHT LOBE: The right lobe of the thyroid gland measures 5.9 x 2.1 x 2.2 cm. There is a homogeneous echotexture. There is a stable solid/cystic 2.9 cm lower pole nodule. LEFT LOBE: The left lobe of the thyroid gland measures 6.5 x 2.2 x 2.4 cm. There is a homogeneous echotexture. There is a stable spongiform mass in the lower pole measuring 3.3 x 2.1 x 3.2 cm. Smaller cystic lesion with solid nodule is seen in the mid thyroid. This measures 0.4 x 0.3 x 0.4 cm. There is a small hypoechoic nodule also seen in the anterior mid thyroid measuring approximately 4 mm in diameter. ISTHMUS: The isthmus measures 0.12 cm. The regional lymph nodes are normal. US/Thyroid IMPRESSION: Stable enlarged thyroid with bilateral nodules. No interval change Electronically Signed: Josue Bañuelos MD at 12:47 EDT , Service support ,
== END ==
PROVIDERS: PCP Internal Medicine; Referring Provider Surgery; Visit Provider Surgery
DX: E04.1 Nontoxic single thyroid nodule (principal)
CPT/HCPCS: 76536

== ENCOUNTER 2021-02-28 08:38 | Emergency (ER) | payer MEDICAID, SELFPAY ==
[2021-02-28 08:39] VITALS: BP 120/101; PULSE 99; RESP 16; TEMP 36.6; O2SAT 100; BMI 32.2
--- NOTE | 2021-02-28 09:25 | ED.VIS.BACK ---
HPI History of Present Illness Chief Complaint: Back Informant: patient Onset/Context/Timing Onset: Yesterday Location: Thoracic Current Severity: Moderate Maximum Severity: Severe Narrative Narrative: Patient presents secondary to lower thoracic back pain. She states symptoms started late last night. Pain does occasionally wrap around her side just below her right ribs. She denies chest pain or shortness of breath. Pain is worse with movement or deep breathing. She denies any known injury. She is a history of mild low back pain but never any problems in this area. [facility] Medical History Abnormal Pap smear of cervix Allergic rhinitis Anxiety and depression Back problem Fatigue Hypertension Home Medications lisinopril 10 mg tablet 10 mg PO DAILY #90 tab 07/17/20 [Rx Last Taken Unknown] hydrochlorothiazide 25 mg tablet 25 mg PO DAILY #90 tab 10/26/20 [Rx Last Taken Unknown] fluticasone propionate 50 mcg/actuation nasal spray,suspension 2 spray INTRANASAL DAILY 90 Days #15.8 g 12/01/20 [Rx Last Taken Unknown] loratadine 10 mg capsule 10 mg PO DAILY PRN #90 cap 12/01/20 [Rx Last Taken Unknown] buspirone 10 mg tablet 10 mg PO BID #120 tab 02/03/21 [Rx Last Taken Unknown] cyclobenzaprine 10 mg PO BID PRN #10 tab 02/28/21 [Rx Last Taken Unknown] hydrocodone-acetaminophen 1 tab PO Q6H PRN 3 Days #10 tab 02/28/21 [Rx Last Taken Unknown] naproxen [Naprosyn] 500 mg PO BID PRN #20 tab 02/28/21 [Rx Last Taken Unknown] Allergy/AdvReac Type Severity Reaction Status Date / Time No Known Allergies Allergy Verified 12/01/20 10:48 Family History Mother Hypertension Anxiety and depression Cancer pre cervical cancer Father Diabetes Heart disease Hypertension Anxiety and depression Hyperlipemia Myocardial infarction, Onset Age: 40 Daughter Cancer ALL Grandmother H/O lumpectomy Surgical History H/O tubal ligation History of dental surgery History of total vaginal hysterectomy Hx of biopsy Social History Smoking Status: Current every day smoker tobacco type: cigarettes Tobacco: How many years used: 25 alcohol intake: current details: social substance use type: marijuana caffeine: Yes what type of physical activity do you participate in: none seatbelt use: always do you feel safe at home: Yes additional social history: single- unemployed ROS ROS ED Constitutional Constitutional ED: Denies chills or fever(s) Eyes Eyes: Denies change in vision ENT ENT ED: Denies sore throat Cardiovascular Cardiovascular: Denies chest pain Respiratory/Chest Respiratory/Chest: Denies cough or dyspnea Gastrointestinal Gastrointestinal: Reports abdominal pain; Denies diarrhea, nausea or vomiting Genitourinary Genitourinary ED: Denies dysuria Musculoskeletal Musculoskeletal: Reports back pain Integumentary Denies rash Neurologic Neurologic: Denies headache(s) or weakness Allergic/Immunologic Allergic/Immunologic ED: Denies urticaria EXAM Physical Exam Const Vital Signs: 02/28/21 08:39 Temperature 97.8 F Temperature Source Temporal Pulse Rate 99 Respiratory Rate 16 Blood Pressure 120/101 H Blood Pressure Mean 107 Pulse Ox 100 Oxygen Delivery Method Room Air Positive well nourished and well developed General Appearance ED: well developed HEENT Reports normocephalic and head/scalp atraumatic Eyes PERRL and EOMs intact bilaterally Neck supple Chest Wall inspection of chest normal and palpation of chest normal Resp normal respiratory effort and clear to auscultation bilaterally Cardio regular rate and regular rhythm GI normal to inspection, nondistended, normoactive bowel sounds Palpation: soft Back/Spine no CVA tenderness and normal to inspection Back/Spine Narrative: Tenderness palpation of the right lower thoracic paraspinal muscles. No overlying skin changes. Extremity normal to inspection Neuro oriented x3 and no sensory deficits noted Sensorium / Orientation: alert Motor Exam: strength 5/5 throughout Psych mental status grossly normal Skin no rashes or lesions noted MDM MDM MDM Narrative Medical decision making narrative: Patient was given morphine, Toradol, Zofran. Lab work obtained. Lab Data Attestation: I reviewed the patient's lab results. Labs: Laboratory Results - last 24 hr 02/28/21 02/28/21 02/28/21 09:25 09:25 10:21 WBC 11.7 H RBC 5.02 Hgb 14.9 Hct 44.7 MCV 89.0 MCH 29.7 MCHC 33.3 RDW Std Deviation 39.7 RDW Coeff of Pura 12.0 Plt Count 417 MPV 9.3 Immature Gran % (Auto) 0.300 Neut % (Auto) 78.6 H Lymph % (Auto) 14.5 L [place] % (Auto) 5.4 Eos % (Auto) 0.9 Baso % (Auto) 0.3 Absolute Neuts (auto) 9.2 H Absolute Lymphs (auto) 1.69 Nucleated RBC % 0 Sodium 136 Potassium 3.6 Chloride 103 Carbon Dioxide 27.0 Anion Gap 6 BUN 8 Creatinine 0.67 Estim Creat Clear Calc 80.17 Est GFR (MDRD) Af Amer 124 Est GFR (MDRD) Non-Af 103 BUN/Creatinine Ratio 11.9 Glucose 91 Calcium 9.2 Total Bilirubin 0.40 Direct Bilirubin 0.13 AST 15 ALT 32 Alkaline Phosphatase 70 Total Protein 8.5 H Albumin 3.8 Globulin 4.7 H Lipase 87 Urine Color Yellow Urine Clarity Sl. Cloudy Urine pH 8.0 Ur Specific [place] 1.010 Urine Protein Negative Urine Glucose (UA) Normal Urine Ketones Negative Urine Occult Blood Negative Urine Nitrite Negative Urine Bilirubin Negative Urine Urobilinogen Normal Ur Leukocyte Esterase Negative Urine RBC 0 SEEN Urine WBC 0 SEEN Ur Squamous Epith Cells 0-5 SEEN Urine Bacteria RARE Urine Mucus 0 SEEN Treatment and Re-Evaluation Comments:: Blood work is largely unremarkable including LFTs and lipase. Urine is clear. On repeat evaluation patient does have improvement in her symptoms although it has not resolved. I do believe this is muscle spasm with nerve irritation as opposed to acute intra-abdominal cause of her pain. She will be treated with Naprosyn, Flexeril, [place]. Discharge Plan Triage Chief Complaint: Back ED Provider: Kamryn Brito Dx/Rx/DC Orders Clinical Impression: Back muscle spasm Instructions: ED Back Spasm, No Trauma Prescriptions: New naproxen [Naprosyn] 500 mg tablet 500 mg PO BID PRN (Reason: pain) Qty: 20 RF: 0 cyclobenzaprine 10 mg tablet 10 mg PO BID PRN (Reason: muscle spasm) Qty: 10 RF: 0 hydrocodone-acetaminophen 5-325 mg tablet 1 tab PO Q6H PRN (Reason: pain) 3 Days Qty: 10 RF: 0 No Action fluticasone propionate [Flonase Allergy Relief] 50 mcg/actuation spray,suspension 2 spray INTRANASAL DAILY 90 Days Qty: 15.8 RF: 3 loratadine 10 mg capsule 10 mg PO DAILY PRN (Reason: allergy symptoms) Qty: 90 RF: 1 lisinopril 10 mg tablet 10 mg PO DAILY Qty: 90 RF: 3 hydrochlorothiazide 25 mg tablet 25 mg PO DAILY Qty: 90 RF: 3 buspirone 10 mg tablet 10 mg PO BID Qty: 120 RF: 1 Primary Care Provider: Orville Nelson Referrals: Orville Nelson MD [Primary Care Provider] - 5-7 Days Disposition Disposition: Home, Self Care
[2021-02-28] MEDS: Morphine 4 MG/ML Syringe IV (09:32)
[2021-02-28] MEDS: Ondansetron 4 MG/2 ML Vial IV (09:32)
[2021-02-28] MEDS: Ketorolac 30 MG/ML Syringe IV (09:32)
[2021-02-28 09:34] LABS: Absolute Lymphocyte Count 1.69 X10^3/uL (0.83-4.51); Absolute Neutrophil Count 9.2 X10^3/uL (2.0-7.7); Basophil# 0.03 X10^3/uL; Basophil% 0.3 % (0-1); Eosinophil# 0.11 X10^3/uL; Eosinophils% 0.9 % (0-5); Hematocrit 44.7 % (37-47); Hemoglobin 14.9 g/dL (12.0-15.0); Lymphocyte # 1.69 X10^3/ul (0.83-4.51); Lymphocyte % 14.5 % (19-41); Mean Corp Hgb Conc 33.3 g/dL (32-36); Mean Corpuscular Hgb 29.7 pg (27.0-32.0); Mean Platelet Vol. 9.3 fl (6.2-12.0); Monocyte# 0.63 X10^3/uL; Monocyte% 5.4 % (0-10); NRBC Flagged by Analyzer 0 % (0-5); Neutrophil # 9.16 X10^3/uL (2.7-7.7); Neutrophil % 78.6 % (47-70); Platelet Count 417 K/mm3 (150-450); RBC Distribution Width SD 39.7 fl (35.1-43.9); Red Blood Count 5.02 M/mm3 (4.2-5.4); White Blood Count 11.7 K/mm3 (4.4-11.0)
[2021-02-28] MEDS: 0.9% Normal Saline 1,000 ML 150 ML IV (09:40)
[2021-02-28 09:47] LABS: AST(SGOT) 15 U/L (15-37); Alanine Aminotransfer ALT/SGPT 32 U/L (13-56); Albumin, Serum 3.8 g/dL (3.2-5.0); Alkaline Phosphatase 70 U/L (45-117); Anion Gap 6 (5-15); BUN 8 mg/dL (7-18); BUN/Creat Ratio 11.9 RATIO (10-20); Bilirubin, Direct 0.13 mg/dL (0.00-0.30); Calcium,Total 9.2 mg/dL (8.5-10.1); Chloride 103 mmol/L (98-107); Creatinine, Serum 0.67 mg/dL (0.55-1.02); EST Glomerular Filtration Rate 103 mL/min (>60); Est Glom Filt Rate - Afr Amer 124 mL/min (>60); Estimated Creatinine Clearance 80.17 ml/min; Globulin 4.7 g/dL (2.2-4.2); Glucose 91 mg/dL (74-106); Lipase 87 U/L (73-393); Potassium 3.6 mmol/L (3.5-5.1); Protein, Total 8.5 g/dL (6.4-8.2); Sodium Level 136 mmol/L (136-145)
[2021-02-28 10:27] LABS: Mucous, Urine 0 SEEN /hpf (<or=2+); Red Blood Cells-Urine 0 SEEN /hpf (0-5); White Blood Cells 0 SEEN /hpf (0-5)
[2021-02-28 10:28] LABS: Color, Urine Yellow (Yellow); Glucose, Dipstick Normal (Normal); Ketone-Dipstick Negative (Negative); Leukocyte Esterase-Dipstick Negative /ul (Negative); Nitrite-Dipstick Negative (Negative); Occult Blood-Urine Negative /ul (Negative); Protein-Dipstick Negative (Negative); Urine Bilirubin Dipstick Negative (Negative); Urine Clarity Sl. Cloudy (Clear); Urine Urobilinogen Normal (Normal)
[2021-02-28 10:34] LABS: Bacteria RARE /hpf (None Seen); Squamous Epithelial Cells - UA 0-5 SEEN /hpf (5-10)
[2021-02-28] MEDS: Lidocaine 5% Patch 1 PATCH TOPICAL (11:55)
[2021-02-28] MEDS: cycloBENZAPRine HCl 10 MG Tablet PO (11:55)
[2021-02-28 11:58] VITALS: BP 105/60; RESP 16
== END 2021-02-28 12:03 | disposition home or self-care (01) ==
PROVIDERS: Emergency Provider Emergency Medicine; PCP Internal Medicine
DX: M62.830 Muscle spasm of back (principal); R07.81 Pleurodynia; M54.6 Pain in thoracic spine; M54.5 Low back pain; I10 Essential (primary) hypertension; F17.210 Nicotine dependence, cigarettes, uncomplicated; Z79.1 Long term (current) use of non-steroidal anti-inflammatories (NSAID); Z79.899 Other long term (current) drug therapy
CPT/HCPCS: 80048; 80076; 81001; 83690; 85025; 96361; 96374; 96375; 99283; J7030; A4216; J2405

== ENCOUNTER 2022-01-21 18:45 | Emergency (ER) | payer MEDICAID, SELFPAY ==
[2022-01-21 18:47] VITALS: BP 137/90; PULSE 83; RESP 14; TEMP 37.2; O2SAT 100; BMI 28.0
--- NOTE | 2022-01-21 19:53 | EDS_ITS ---
HPI History of Present Illness Chief Complaint: Abscess Informant: patient Narrative Narrative: Patient complains about an abscess above her upper tooth. She had nausea and actually vomited couple times this morning but really does not have any nausea now. No abdominal pain. No trouble eating drinking. No trouble swallowing. No facial swelling. No headache. No neurologic symptoms. She states she knows she has bad teeth. She needs all of them pulled. She has chips of enamel to come off not infrequently. She had some that came off several days ago before this started. She was seen in urgent care today. They told her because she has infection in t he upper teeth she needs to be seen in the ER. [facility] Medical History Abnormal Pap smear of cervix Allergic rhinitis Anxiety and depression Back problem Fatigue Hypertension Left-sided thoracic back pain Home Medications hydrochlorothiazide 25 mg tablet 25 mg PO DAILY #90 tabs 10/26/20 [Rx Last Taken Unknown] fluticasone propionate 50 mcg/actuation nasal spray,suspension (Flonase Allergy Relief) 2 spray intranasal DAILY 90 days #15.8 grams 12/01/20 [Rx Last Taken Unknown] naproxen 500 mg tablet (Naprosyn) 500 mg PO BID PRN pain #20 tabs 03/10/21 [Rx Last Taken Unknown] methylprednisolone 4 mg tablets in a dose pack (Medrol (Will)) See Rx Instructions PO PER PKG DIR #21 tabs 05/26/21 [Rx Last Taken Unknown] lisinopril 10 mg tablet 10 mg PO DAILY #90 tabs 08/10/21 [Rx Last Taken Unknown] loratadine 10 mg capsule 10 mg PO DAILY PRN allergy symptoms #90 caps 08/10/21 [Rx Last Taken Unknown] ondansetron 4 mg disintegrating tablet 4 mg PO Q8H PRN nausea and vomiting #10 tabs 01/21/22 [Rx Last Taken Unknown] penicillin V potassium 500 mg tablet 500 mg PO 4X/DAY #40 tabs 01/21/22 [Rx Last Taken Unknown] Allergy/AdvReac Type Severity Reaction Status Date / Time No Known Allergies Allergy Verified 01/21/22 18:47 Family History Mother Hypertension Anxiety and depression Cancer pre cervical cancer Father Diabetes Heart disease Hypertension Anxiety and depression Hyperlipemia Myocardial infarction, Onset Age: 40 Daughter Cancer ALL Grandmother H/O lumpectomy Surgical History H/O tubal ligation History of dental surgery History of total vaginal hysterectomy Hx of biopsy Social History Smoking Status: Current every day smoker tobacco type: cigarettes Tobacco: How many years used: 25 alcohol intake: current details: social substance use type: marijuana caffeine: Yes what type of physical activity do you participate in: none seatbelt use: always do you feel safe at home: Yes additional social history: single- unemployed ROS ROS ED Constitutional Constitutional ED: Denies fever(s) or subjective Eyes Eyes: Denies change in vision ENT ENT ED: Reports other Details: See history of present illness. ; Denies ear pain, rhinorrhea or sore throat Cardiovascular Cardiovascular: Denies chest pain or palpitations Respiratory/Chest Respiratory/Chest: Denies cough Gastrointestinal Gastrointestinal: Reports nausea and vomiting; Denies abdominal pain, constipation, diarrhea or melena Genitourinary Genitourinary ED: Denies dysuria Musculoskeletal Musculoskeletal: Denies back pain or neck pain Integumentary Denies Abrasions or rash Neurologic Neurologic: Denies headache(s) Hematologic/Lymphatic Hematologic/Lymphatic: Denies easy bleeding or easy bruising Allergic/Immunologic Allergic/Immunologic ED: Denies urticaria EXAM Physical Exam Const Vital Signs: 01/21/22 18:47 Temperature 98.9 F Temperature Source Temporal Pulse Rate 83 Respiratory Rate 14 Blood Pressure 137/90 H Blood Pressure Mean 105 Pulse Ox 100 Oxygen Delivery Method Room Air Positive well nourished and well developed Constitutional Narrative: Patient awake alert nontoxic and carries on a very normal conversation. She looks comfortable. General Appearance ED: well developed and NAD HEENT Reports moist mucous membranes HEENT Narrative: Patient has extensively poor dentition throughout. She does have a little eryth lonnie of the gums above #11. No palpable abscess or drainable abscess. No facial swelling. I see no abscess in either nostril. No change in voice. No trouble swallowing or handling secretions. Eyes EOMs intact bilaterally Eyes Narrative: No pain with motion of the eyes. No swelling of lids. No proptosis Resp normal respiratory effort and clear to auscultation bilaterally Cardio regular rate and regular rhythm GI normal to inspection, nondistended, normoactive bowel sounds, non-tender and non-distended Back/Spine no CVA tenderness Neuro Sensorium / Orientation: alert Psych mental status grossly normal MDM MDM MDM Narrative Medical decision making narrative: I will give patient Gomez for nausea. She states she needs this to take antibiotics. She thinks she has tolerated penicillin before. We will go with this. She will follow-up with dentist. She knows she likely needs an oral maxillofacial surgeon and have complete extractions and dentures made we discussed reasons for return including trouble swallowing, change in voice, internal oral swelling or significant swelling of the face headache or neurologic symptoms. Discharge Plan Triage Chief Complaint: Abscess ED Provider: John Levy Dx/Rx/DC Orders Clinical Impression: Abscess, dental, Nausea Instructions: Dental Abscess Prescriptions: New penicillin V potassium 500 mg tablet 500 mg PO 4X/DAY Qty: 40 0RF ondansetron 4 mg tablet,disintegrating 4 mg PO Q8H PRN (Reason: nausea and vomiting) Qty: 10 0RF No Action fluticasone propionate [Flonase Allergy Relief] 50 mcg/actuation spray,suspension 2 spray INTRANASAL DAILY 90 Days Qty: 15.8 3RF Rx Instructions: administer into each nostril naproxen [Naprosyn] 500 mg tablet 500 mg PO BID PRN (Reason: pain) Qty: 20 0RF methylprednisolone [Medrol (Will)] 4 mg tablets,dose pack See Rx Instructions PO PER PKG DIR Qty: 21 0RF Rx Instructions: PO PER PKG DIR hydrochlorothiazide 25 mg tablet 25 mg PO DAILY Qty: 90 3RF lisinopril 10 mg tablet 10 mg PO DAILY Qty: 90 3RF loratadine 10 mg capsule 10 mg PO DAILY PRN (Reason: allergy symptoms) Qty: 90 1RF Primary Care Provider: Orville Nelson Referrals: Orville Nelson MD [Primary Care Provider] - Activity Restrictions/Additional Instructions: Follow-up with dentist as soon as possible. A list is provided for assistance. Disposition Disposition: Home, Self Care
[2022-01-21] MEDS: Ondansetron ODT 4 MG Tablet PO (20:05)
== END 2022-01-21 20:17 | disposition home or self-care (01) ==
PROVIDERS: Emergency Provider Emergency Medicine; PCP Internal Medicine; Visit Provider Emergency Medicine
DX: K04.7 Periapical abscess without sinus (principal); R11.2 Nausea with vomiting, unspecified; I10 Essential (primary) hypertension; F17.210 Nicotine dependence, cigarettes, uncomplicated
CPT/HCPCS: 99283

== ENCOUNTER → 2022-04-26 | Outpatient (CLI) | payer MEDICAID, SELFPAY ==
[2022-04-26 15:18] LABS: Basophil# 0.01 X10^3/uL; Basophil% 0.2 % (0-1); Eosinophil# 0.07 X10^3/uL; Eosinophils% 1.2 % (0-5); Hematocrit 45.5 % (37-47); Hemoglobin 15.9 g/dL (12.0-15.0); Lymphocyte % 37.9 % (19-41); Mean Corp Hgb Conc 34.9 g/dL (32-36); Mean Corpuscular Hgb 30.9 pg (27.0-32.0); Mean Corpuscular Volume 88.5 fL (81-99); Monocyte# 0.52 X10^3/uL; NRBC Flagged by Analyzer 0 % (0-5); Neutrophil % 51.5 % (47-70); Platelet Count 273 K/mm3 (150-450); RBC Distribution Width SD 39.2 fl (35.1-43.9); Red Blood Count 5.14 M/mm3 (4.2-5.4); White Blood Count 5.8 K/mm3 (4.4-11.0)
[2022-04-26 16:50] LABS: Anion Gap 8 (5-15); BUN 10 mg/dL (7-18); BUN/Creat Ratio 15.2 RATIO (10-20); Calcium,Total 9.6 mg/dL (8.5-10.1); Chloride 101 mmol/L (98-107); Creatinine, Serum 0.66 mg/dL (0.55-1.02); EST Glomerular Filtration Rate 105 mL/min (>60); Est Glom Filt Rate - Afr Amer 127 mL/min (>60); Glucose 84 mg/dL (74-106); Potassium 3.3 mmol/L (3.5-5.1); Sodium Level 138 mmol/L (136-145); Thyroid Stim Hormone (TSH) 1.51 uIU/mL (0.358-3.74)
== END | disposition home or self-care (01) ==
LOC: BIMLAB 14:42
PROVIDERS: PCP Internal Medicine; Referring Provider Nurse Practitioner Family; Visit Provider Nurse Practitioner Family
DX: R50.9 Fever, unspecified (principal); R53.83 Other fatigue; K04.7 Periapical abscess without sinus
CPT/HCPCS: 36415; 80048; 84443; 85025

== ENCOUNTER → 2023-04-12 | Outpatient (CLI) | payer MEDICAID, SELFPAY ==
[2023-04-12 16:51] LABS: Absolute Lymphocyte Count 2.52 X10^3/uL (0.83-4.51); Absolute Neutrophil Count 4.3 X10^3/uL (2.0-7.7); Basophil# 0.05 X10^3/uL; Basophil% 0.7 % (0-1); Eosinophil# 0.27 X10^3/uL; Eosinophils% 3.6 % (0-5); Hematocrit 43.9 % (37-47); Hemoglobin 14.3 g/dL (12.0-15.0); Lymphocyte # 2.52 X10^3/ul (0.83-4.51); Lymphocyte % 33.6 % (19-41); Mean Corp Hgb Conc 32.6 g/dL (32-36); Mean Corpuscular Hgb 29.9 pg (27.0-32.0); Mean Corpuscular Volume 91.8 fL (81-99); Monocyte# 0.38 X10^3/uL; Monocyte% 5.1 % (0-10); NRBC Flagged by Analyzer 0 % (0-5); Neutrophil # 4.25 X10^3/uL (2.7-7.7); Neutrophil % 56.7 % (47-70); Platelet Count 393 K/mm3 (150-450); RBC Distribution Width CV 12.6 % (11.6-14.6); RBC Distribution Width SD 42.7 fl (35.1-43.9); Red Blood Count 4.78 M/mm3 (4.2-5.4); White Blood Count 7.5 K/mm3 (4.4-11.0)
[2023-04-12 17:22] LABS: Erythrocyte Sedimentation Rate 8 mm/hr (0-30)
[2023-04-12 17:37] LABS: ALB/GLOB Ratio 0.9 RATIO (0.9-2.4); AST(SGOT) 9 U/L (15-37); Alanine Aminotransfer ALT/SGPT 18 U/L (13-56); Albumin, Serum 3.4 g/dL (3.2-5.0); Alkaline Phosphatase 51 U/L (45-117); Anion Gap 6 (5-15); BUN 10 mg/dL (7-18); CRP < 2.90 mg/L (0.0-3.0); Calcium,Total 8.7 mg/dL (8.5-10.1); Chloride 108 mmol/L (98-107); Creatinine, Serum 0.71 mg/dL (0.55-1.02); EST Glomerular Filtration Rate 95 mL/min (>60); Est Glom Filt Rate - Afr Amer 115 mL/min (>60); Globulin 3.8 g/dL (2.2-4.2); Glucose 80 mg/dL (74-106); Potassium 3.7 mmol/L (3.5-5.1); Protein, Total 7.2 g/dL (6.4-8.2); Sodium Level 141 mmol/L (136-145); Thyroid Stim Hormone (TSH) 1.58 uIU/mL (0.358-3.74)
[2023-04-14 11:09] LABS: ANTINUCLEAR ANTIBODIES DIRECT Negative (Negative)
== END | disposition home or self-care (01) ==
LOC: BIMLAB 14:47
PROVIDERS: Internal Medicine; PCP Internal Medicine; Visit Provider Internal Medicine
DX: R53.83 Other fatigue (principal); R52 Pain, unspecified
CPT/HCPCS: 36415; 80053; 82306; 84443; 85025; 85652; 86038; 86140; 86225; 86235

== ENCOUNTER 2023-07-05 08:00 | Outpatient (RCR) | payer MEDICAID, SELFPAY ==
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
--- NOTE | 2023-07-05 11:15 | BH.SGPN.GN ---
Behaviors/Verbalizations/Mental Status: []Pt alert and oriented, casually dressed and groomed. Eye contact good. Motor activity appropriate. Speech within normal limits. Affect congruent, mood depressed and anxious. Thoughts linear, logical, no signs of hallucinations or delusions. Client Response/Progress/Benefit: [] Pt was engaged during discussion and willing to complete the worksheet challenging them to develop a personal SMART goal. Pt chose the goal of eating three meals a day for a week. Pt stated this will improve her overall health. Pt identified loss of appetite, lack of time, and not having food to prepare as barriers. Identified solutions such as setting a schedule, preparing meals ahead of time, and using opposite action. Pt receptive to identifying solutions for these barriers and willing to begin working on this goal. Benefited from this group by developing a short-term SMART goal related to mental health. Will continue IOP tx to prevent decompensation, improve daily functioning, and gain healthy coping skills. Narrative Note: []
[2023-07-05 11:30] VITALS: BP 127/94; PULSE 71
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
--- NOTE | 2023-07-05 13:10 | BH.DR.ITP ---
Initial Treatment Plan Patient Information Visit Information: ADMISSION DATE: EXPECTED LOS: 4-6 weeks Problems/Symptoms Problem #1:: Anxiety Symptom:: Worry, rumination, panic attacks, hypervigilance, flashbacks, nightmares, dissociation, lack of trust of others Problem #2:: Depression Symptom:: Sadness, worthlessness, guilt, irritability, anhedonia, biological disruption of sleep, low energy, decreased concentration, passive thoughts of
--- NOTE | 2023-07-10 09:05 | BH.SGPN.GN ---
Behaviors/Verbalizations/Mental Status: [ Patient was alert and oriented, appropriately dressed and groomed. Eye contact was good, motor activity normal, speech within normal limits. Affect congruent, mood content. Thoughts linear, logical, no signs of hallucinations or delusions. Reviewed Patients symptom tracker and the patient reports depressed mood, anxiety/panic attacks, agitation/irritability/anger, self-harm risk, and thoughts/risk of suicide within normal limits. Since this is her first group, she will be check on afterwards.] Client Response/Progress/Benefit: [Patient was engaged and open to the discussion. Patient reported her mood to be ?drained?. Patients first win is that she got a raise at her job although she has been off on FMLA from work. Patients second win is that her job has been understanding and knew that she was ?about to break? which has allowed her to start trying to take care of herself. Patients stressor is that she is not getting paid for her FMLA and she believes she could be having delusions about things in her life, so she doesn?t know what is real and fake. Patient was interactive and respectful with other group members about their mental wins and stressors. Patient benefited from the discussion by listening to feedback and giving input on her peer?s stressors and mental health wins. Patient will continue with IOP treatment to help develop healthy skills, promote mood stability, and improve distress tolerance. ] Narrative Note: []
--- NOTE | 2023-07-10 10:10 | BH.SGPN.GN ---
Behaviors/Verbalizations/Mental Status: []Pt alert and oriented, casually dressed and groomed. Eye contact fair. Motor activity appropriate. Speech within normal limits. Affect congruent, mood euthymic. Thoughts linear, logical, no signs of hallucinations or delusions. Client Response/Progress/Benefit: []Pt was an active participant during interactive group discussions. Attentive during psychoeducation on the six types of boundaries. Pt along with peers contributed to interactive discussion on defining what a boundary is and group identified challenges to setting boundaries. Group reviewed the 6 types of boundaries. Pt shared boundaries are hard for her because she likes to make others happy to create a less chaotic environment. Pt stated she recognizes boundaries are beneficial in order to get needs met. Pt benefited from increased awareness and insight on the importance/benefit to setting health boundaries. Will continue IOP tx to increase distress tolerance, improve view of self, and prevent decompensation.
--- NOTE | 2023-07-10 11:15 | BH.SGPN.GN ---
Behaviors/Verbalizations/Mental Status: []Pt alert and oriented, casually dressed and groomed. Eye contact good. Motor activity appropriate. Speech within normal limits. Affect congruent, mood dysthymic. Thoughts linear, logical, no signs of hallucinations or delusions. Client Response/Progress/Benefit: [] Pt responded well to session AEB listening attentively to peers and providing input throughout. Pt attentive during psychoeducation on the different boundary styles. Pt identified she tends to be porous as pt struggles with saying no, but pt is also rigid with her emotional boundaries. Pt was given a handout on strategies for healthy boundary setting. Identified wanting to practice DDD and learning how to articulate her boundaries better. Appeared to benefit from increasing insight to boundary setting and the impacts on mental health. Seemed to benefit from increased awareness of boundary styles and strategies to improve setting boundaries. Will continue IOP tx to prevent decompensation, improve daily functioning, and gain healthy coping skills. Narrative Note: []
--- NOTE | 2023-07-12 09:05 | BH.SGPN.GN ---
Behaviors/Verbalizations/Mental Status: [ Patient was alert and oriented, appropriately dressed and groomed. Eye contact was good, motor activity normal, speech within normal limits. Affect congruent, mood content. Thoughts linear, logical, no signs of hallucinations or delusions. Reviewed Patients symptom tracker and the patient reports depressed mood, anxiety/panic attacks, agitation/irritability/anger, self-harm risk, and thoughts/risk of suicide within normal limits. Patient will be checked in with after group despite her scores to ensure safety.] Client Response/Progress/Benefit: [Patient was engaged and open to the discussion. Patient reported her mood to be ?down?. Patients first win is that she found her insurance information for her job finally. She shared that it had been missing and where she found it was not where she thought she put it. Patients second win was that she took a shower yesterday. Patient shared that it has been ?almost impossible? to convince herself to shower, but she managed it. She says because of her long hair, it?s a lot of work but she feels better now. Patients stressor is that her kids have been very challenging the past few weeks and it has not been helping her mood. Patient was interactive and respectful with other group members about their mental wins and stressors. Patient benefited from the discussion by listening to feedback and giving input on her peer?s stressors and mental health wins. Patient will continue with IOP treatment to help develop healthy skills, promote mood stability, and improve distress tolerance. ] Narrative Note: []
--- NOTE | 2023-07-12 10:15 | BH.SGPN.GN ---
Behaviors/Verbalizations/Mental Status: []Pt alert and oriented, casually dressed and groomed. Eye contact good. Motor activity appropriate. Speech within normal limits. Affect constricted, mood anxious, irritable, and depressed. Thoughts linear, logical, no signs of hallucinations or delusions. Client Response/Progress/Benefit: [] Pt receptive of session, actively engaged throughout AEB taking notes, providing input, and contributing in small group discussion. Appeared to connect with group topic of cognitive distortions and the impact of thought patterns on mental health, coping behaviors, and relationships. Pt connected most with distortions of jumping to conclusions, mind-reading, and catastrophizing. Pt able to identify how these distortions impact functioning. Pt appeared to benefit from gaining insight on distorted thinking patterns and how this impacts overall mental health. Will continue IOP tx to prevent decompensation, improve daily functioning, and increase use of healthy coping skills. Narrative Note: []
--- NOTE | 2023-07-12 11:15 | BH.SGPN.GN ---
Behaviors/Verbalizations/Mental Status: [] Eye contact is good. Motor activity is within normal limits. Appearance is casual. Speech is Appropriate. Mood is depressed and anxious. Affect is congruent. Thoughts are linear and logical. No evidence of psychosis. Client Response/Progress/Benefit: [] Pt was initially passive but as group progressed she became an active participant, specifically during group discussions and activity. Pt was placed in a smaller group and participated in quiz-show format in which small groups competed against each-other to answer questions based on identifying, challenging, and reframing cognitive distortions. Pt was engaged in the smaller group, participated in group interactions to brainstorm answers, and appeared to be comprehending cognitive distortions. Stated learning that ?another term for cognitive distortions is 'stinkin thinkin'?. Benefited from gaining further insight and awareness of cognitive distortions as well as practicing ways to reframe and challenge thoughts. Will continue in IOP to promote use of anxiety and stress management skills, stabilize mood, and improve ability to function. Narrative Note: []
== END 2023-07-12 23:59 ==
LOC: BHIOP 08:00
PROVIDERS: PCP Internal Medicine; Referring Provider Psychiatry & Neurology Psychiatry; Visit Provider Psychiatry & Neurology Psychiatry
DX: F33.2 Major depressive disorder, recurrent severe without psychotic features (principal); F41.1 Generalized anxiety disorder
CPT/HCPCS: 90792; H2012; H2020; S9480; T1002; 90837

== ENCOUNTER 2023-07-13 07:51 | Outpatient (RCR) | payer MEDICAID, SELFPAY ==
[2023-07-13 01:00] VITALS: BP 127/94; PULSE 71
--- NOTE | 2023-07-14 09:05 | BH.SGPN.GN ---
Behaviors/Verbalizations/Mental Status: [Patient was alert and oriented, appropriately dressed and groomed. Eye contact was good, motor activity normal, speech within normal limits. Affect congruent, mood content. Thoughts linear, logical, no signs of hallucinations or delusions. Reviewed Patients symptom tracker and the patient reports depressed mood, anxiety/panic attacks, agitation/irritability/anger, self-harm risk, and thoughts/risk of suicide within normal limits.] Client Response/Progress/Benefit: [Patient was engaged and open to the discussion. Patient reported her mood to be ?peeved?. Patient stated that her stressor is that she woke up in a ?very bad mood? but doesn?t know why. She shared she hasn?t been having nightmares but has been having ?unpleasant dreams? that wake her up. Patient also shared that she got pulled over on the way to group because her headlight is out but was given a warning. Patients first win is that she got her taxes filed yesterday and got that money instantly on a ?emerald card? which solves her financial issue. Patient was interactive and respectful with other group members about their mental wins and stressors. Patient benefited from the discussion by listening to feedback and giving input on her peer?s stressors and mental health wins. Patient will continue with IOP treatment to help develop healthy skills, promote mood stability, and improve distress tolerance. ] Narrative Note: []
--- NOTE | 2023-07-14 10:10 | BH.SGPN.GN ---
Behaviors/Verbalizations/Mental Status: [] Eye contact is good. Motor activity is appropriate. Appearance is casual. Speech is Appropriate. Mood is depressed and anxious. Affect is congruent. Thoughts are linear and logical. No evidence of psychosis. Client Response/Progress/Benefit: []Pt engaged participant AEB listening to others, engaging in activity, and providing feedback at times. Attentive during psychoeducation and provided insight into obstacles the impede mental wellness. Pt shared with group current mental health reality and desired mental health reality. Stated coming to IOP as step she is currently making to get closer to desired reality. Identified barriers to desired reality include: acting on emotion, cognitive distortions, and guilt which causes pt to struggle with establishing healthier boundaries. Benefited from taking look at current mental health state and obstacles for progress. Pt to continue IOP to improve daily functioning, improve distress tolerance, reduce paranoia, and prevent decompensation. Narrative Note: []
--- NOTE | 2023-07-14 11:10 | BH.SGPN.GN ---
Behaviors/Verbalizations/Mental Status: [] Eye contact is good. Motor activity is appropriate. Appearance is casual. Speech is Appropriate. Mood is depressed/irritable. Affect is congruent. Thoughts are linear and logical. No evidence of psychosis Client Response/Progress/Benefit: [] Pt was an active participant in group discussion and activity. Worked with group to identify strategies to help overcome barriers and obstacles to desired reality. Group developed strategies for the common barriers of avoidance, feeling burned out, unrealistic expectations, emotional reasoning, and difficulty asking for help. Identified personal barriers to desired reality and choose one obstacle to work on this week (Avoidance). Identified several strategies to implement such as setting small realistic goals. Benefited from group by identifying obstacles and solutions to desired reality. Will continue in IOP to maintain safety, stabilize mood, prevent decompensation, and improve functioning. Narrative Note: []
--- NOTE | 2023-07-14 11:55 | BH.MDN ---
Multi-Disciplinary Note Note 30-min Individual: Time Started:: 12:12 Date: 07/17/23 Purpose of session/treatment goals addressed:: Pt presented this AM with increased irritability and poor emotion regulation. Met with pt to process mood and develop calming strategies. Eye Contact:: Good Motor Activity:: Appropriate Appearance:: Casual Speech:: Appropriate and Pressured Mood:: Anxious, Irritable and Depressed Affect:: Congruent Thoughts:: Linear, Logical and No evidence of hallucinations/delusions noted Staff Interventions:: motivational interviewing, psychoeducation on: (maintenance cycles, self-care), rapport building, strengths perspective, treatment planning, goal setting (one creative activity this week ) and taught coping skills (progressive muscle relaxation) Client Response:: Tearful throughout the session. Pt reports that although she is still experiencing significant depression, sx are improved from time of initial intake appointment. At that time pt was not getting out of bed for days at a time and cried much of the day. Pt now reports she is completing her necessary responsibilities but feels little brody in doing so. \Spent much of session describing caregiver burnout and uncertainty regarding current relationship. Pt explained that she is the only one currently driving within the home and therefore spends much of her day driving family to and from work, school, and other appointments. Pt stated that her two youngest daughters, ages 9 & 10, have limited understanding of mental health and struggle with giving pt space as needed. Shared that since she has experienced worsening mental health sx, her daughters? behaviors have become significantly more difficult to manage. Insight that this then reinforces pt irritability, guilt, and depression. Notes that her boyfriend is somewhat supportive of pt but he struggles with his own mental health issues and often shuts down when pt attempts to process with him. Shared she has been wondering if the relationship has been contributing to her mental health decompensation. Reports experiencing significant emotional distress and arguments when second-guessing his fidelity and intentions for the relationship. Describes her life as exhausting and struggles to find time to utilize skills or practice self-care. Pt did do well to identify creative outlets such as writing poetry, drawing, scrapbooking, ect. have been helpful in the past and that she would like to get back into these activities but every time she tries she struggles to find inspiration. Pt receptive of psychoeducation on vicious cycles, specifically that of depression and importance of applying behavior activation skills such as opposite action to begin breaking this cycle. Pt goal to engage in one creative activity before bed this week. Risks/Concerns:: No risks or concerns noted. Daily symptom tracker indicates no suicidal ideations or intent. Progress Toward Goals/Plan:: Limited progress noted due to continued isolation, limited support, struggles to utilize skills, and significant psychosocial stressors. Emotion dysregulation noted today AEB by irritability and self-report of yelling when frustrated in the car this morning. Insight that she is caught in a cycle of isolation and low motivation. Pt is attentive during groups and reports benefiting from support of fellow participants. Support, encouragement, and education on boundary-setting, self-care, and effective communication provided. Pt recommended continued IOP tx to promote behavior activation skills, improve mood stability, and prevent decompensation. Time Stopped:: 13:00
--- NOTE | 2023-07-17 09:00 | BH.SGPN.GN ---
Behaviors/Verbalizations/Mental Status: [Patient was alert and oriented, appropriately dressed and groomed. Eye contact was good, motor activity normal, speech within normal limits. Affect congruent, mood content. Thoughts linear, logical, no signs of hallucinations or delusions. Reviewed Patients symptom tracker and the patient reports depressed mood, anxiety/panic attacks, agitation/irritability/anger, self-harm urges, and thoughts/risk of suicide within normal limits.] Client Response/Progress/Benefit: [Patient was engaged and open to the discussion. Patient reported her mood to be ?alone?. Patient reported her stressor is that she feels lonely. She shared that she feels that no one understands her, and her boyfriend keeps gaslighting her and making her feel like she?s crazy which has worsened her depression. Patient shared that her first win is that she was able to financially afford to give her car some ?much needed maintenance? which took some stress off her. Patient stated her second win is that she gets to go get a new phone today. Patient was interactive and respectful with other group members about their mental wins and stressors. Patient benefited from the discussion by listening to feedback and giving input on her peer?s stressors and mental health wins. Patient will continue with IOP treatment to help develop healthy skills, promote mood stability, and improve distress tolerance. ] Narrative Note: []
--- NOTE | 2023-07-17 10:10 | BH.SGPN.GN ---
Behaviors/Verbalizations/Mental Status: []Pt alert and oriented, causally dressed and groomed. Eye contact good. Motor activity appropriate. Speech within normal limits. Affect congruent, mood euthymic and anxious. Thoughts linear, logical, no signs of hallucinations or delusions. Client Response/Progress/Benefit: [] Pt was actively engaged, providing input, and taking notes throughout session. Connected with the topic of pitfalls and listened to group discussion on internal and external barriers that prevent from choosing a healthier path to mental wellness. Group worked together to identify examples of personal internal pitfalls and pt identified theirs as isolation, shutting down, lack of acceptance, and not challenging distorted thoughts. Pt benefited from group as pt learned to better identify and normalize potential barriers to improving mental health symptoms. Pt also gained awareness of the difference between external triggers and self-sabotaging behaviors. Pt will continue IOP tx to increase healthy coping skills, improve distress tolerance, and prevent decompensation.
--- NOTE | 2023-07-17 11:10 | BH.SGPN.GN ---
Behaviors/Verbalizations/Mental Status: []Pt alert and oriented, casually dressed and groomed. Eye contact good. Motor activity appropriate. Speech within normal limits. Affect constricted, mood irritable. Thoughts linear, logical, no signs of hallucinations or delusions. Client Response/Progress/Benefit: [] Pt receptive of session, engaged throughout AEB actively contributing and listening to discussion, as well as taking notes. Pt participated in the experiential activity and processed with group how their emotions, perspective, and reactions positively and negatively impacted the outcome. Pt identified pitfalls they struggle with and shared wanting to work on pitfall of shutting down by setting at least one goal a day. Benefited from identifying personal pitfalls and strategies to overcome these pitfalls. Will continue IOP tx to prevent decompensation, improve daily functioning, and increase distress tolerance skills. ? Narrative Note: []
--- NOTE | 2023-07-19 10:10 | BH.SGPN.GN ---
Behaviors/Verbalizations/Mental Status: []Pt alert and oriented, neatly dressed and groomed. Eye contact good. Motor activity appropriate. Speech within normal limits. Affect congruent, mood depressed. Thoughts linear, logical, no signs of hallucinations or delusions. Client Response/Progress/Benefit: [] Pt was an active?participant in small group discussion. Pt?s group worked together to identify benefits of healthy relationships which included insight, accountability, and guidance. Group identified factors that lead to unhealthy relationships. Pt?s personal factors included trauma, codependency, and not seeing healthy relationships in her upbringing. Actively participated in group experiential activity and expressed ideas to group. Benefited from increased insight and awareness of benefits of healthy relationships and factors that contribute to unhealthy relationships. Will continue IOP tx to prevent decompensation, gain healthy coping skills, and improve daily functioning. ? Narrative Note: []
--- NOTE | 2023-07-19 11:15 | BH.SGPN.GN ---
Behaviors/Verbalizations/Mental Status: [] Client alert and oriented, casually dressed and groomed. Eye contact good. Motor activity appropriate. Speech within normal limits. Affect congruent, mood depressed and anxious. Thoughts linear, logical, no signs of hallucinations or delusions. Client Response/Progress/Benefit: [] Client responded well to session, engaged and taking notes throughout. Worked with group to connect components of the experiential activity with characteristics of healthy and unhealthy relationships. Attentive during psychoeducation about characteristics of healthy, unhealthy, and abusive relationships. Client stated that within the relationship with her significant other she does well with enjoying quality time together. Client reported an area she would like to work on as reducing her instinct to use blaming language when experiencing conflict. Appeared to benefit from identifying the current healthy relationship attributes and an area client wants to work on to build healthier relationships. Client to continue IOP to increase healthy coping skills, stabilize mood, and prevent decompensation. Narrative Note: []
--- NOTE | 2023-07-19 11:53 | PCM.BH.PN_ITS ---
Progress Note Progress Note: History of Present Illness/Interim History: The patient is a 43-year-old female who was last seen 2 weeks ago and at that time Abilify and BuSpar were started and she is being seen for anxiety and depression. The patient is tolerating medications well and according to the staff she has been consistently attending and is engaged in the program. She states that she is still depressed and anxious and has some irritability but she has not had a panic attack in the last 10 days. She still is upset about her boyfriend's ongoing affair and when he leaves the house to see the girlfriend or taxes the girlfriend this still triggers her. She still believes he is cheating on the line and with her ex best friend. The patient states that she has decided to leave her boyfriend but has not taken action yet. Her appetite is improved on the Abilify and she is sleeping about 7 and half hours to 8 hours a night. She is learning valuable skills in the IOP especially around setting boundaries and is using them in her everyday life. She remains unable to cut down on caffeine because she states that she needs to function until she gets more energy she needs the caffeine. She is no longer losing weight. Current Psychiatric Medications: [] BuSpar 10 mg p.o. twice daily; Abilify 2 mg p.o. daily Mental Status Examination: [] The patient is a 43-year-old female who is wearing glasses and appears normal or slightly younger than stated age and is casually dressed and groomed with good hygiene. She has no psychomotor agitation or retardation. Speech is normal rate and rhythm and fluent with no pressure and eye contact is good. Mood is depressed and anxious. Affect is full and normal. Thought processes goal-directed and organized. Thought content: There is evidence of mistrust of the boyfriend. There is no evidence of passive thoughts of , suicidal ideation, plan for suicide, homicidal ideation, hallucinations or delusions. Reality testing is intact. Judgment is intact. Insight is fair and improving. Impulsivity is moderate. Diagnoses: [] 1. PTSD 2. Major depressive disorder, recurrent, severe without psychosis 3. Generalized anxiety disorder 4. Primary support and work issues Plan: [] The patient will continue the IOP in behavioral health at [facility] as the structure, support, education and group therapy will hopefully prevent worsening of the patient's symptoms which could require hospitalization. She felt safe during the interview and if it anytime she does not feel safe she will let us know or go to the emergency room. The risk, options, possible complications and side effects of medications were discussed again with the patient and she understands accepts these. The patient wishes and agrees to increase her medications and prescriptions were sent in for Abilify 5 mg p.o. daily and BuSpar 20 mg p.o. twice daily. I will see the patient in follow-up in 2 weeks and she will continue to follow-up with her outpatient providers.
--- NOTE | 2023-07-24 09:00 | BH.SGPN.GN ---
Behaviors/Verbalizations/Mental Status: [Patient was alert and oriented, appropriately dressed and groomed. Eye contact was good, motor activity normal, speech within normal limits. Affect congruent, mood content. Thoughts linear, logical, no signs of hallucinations or delusions. Reviewed Patients symptom tracker and the patient reports moderate in depressed mood, agitation/irritability/anger, and low/moderate in anxiety/panic attacks. Patient does not report symptoms for self-harm urges or thoughts/risk of suicide. ] Client Response/Progress/Benefit: [Patient was engaged and open to the discussion. Patient reported her mood to be ?blessed?. Patient reports her first win is that she woke up in a good mood which hasn?t happened in a while now. She stated she had nightmares of demons last night which made her think of her spirituality and connectiveness with God. She stated she woke up feeling blessed that her family is healthy and the things she has. Patients second win was that over the weekend her kids had asleep over and their behaviors were good. Patients stressor is that she may have to do more work to her car, but she just did some work on it. Patient was interactive and respectful with other group members about their mental wins and stressors. Patient benefited from the discussion by listening to feedback and giving input on her peer?s stressors and mental health wins. Patient will continue with IOP treatment to help develop healthy skills, promote mood stability, and improve distress tolerance. ] Narrative Note: []
--- NOTE | 2023-07-24 10:10 | BH.SGPN.GN ---
Behaviors/Verbalizations/Mental Status: []Pt alert and oriented, casually dressed and groomed. Eye contact good. Motor activity appropriate. Speech within normal limits. Affect congruent, mood anxious. Thoughts linear, logical, no signs of hallucinations or delusions. Client Response/Progress/Benefit: []Pt was an active participant in activity and taking notes during group discussion. Attentive during psychoeducation on coping skills, why people use unhealthy coping skills, and how to replace unhealthy coping skills. Pt shared she personally struggles with avoidance, especially when it comes to cleaning. Noted this results in things piling up and pt becoming overwhelmed and agitated. Group came up with list of negative coping skills including not asking for help, avoidance, isolating, and sleeping. Group discussed the effects of how negative coping skills can impact mental health in a negative way. Benefited from increased understanding of unhealthy coping skills and the need for developing healthy internal and external coping skills. Pt will continue IOP tx to decrease maladaptive coping, continue improving mood stability, and prevent decompensation. Narrative Note: []
--- NOTE | 2023-07-24 11:10 | BH.SGPN.GN ---
Behaviors/Verbalizations/Mental Status: []Pt alert and oriented, casually dressed and groomed. Eye contact fair. Motor activity appropriate. Speech within normal limits. Affect congruent, mood anxious. Thoughts linear, logical, no signs of hallucinations or delusions Client Response/Progress/Benefit: []Pt responded well to session, taking notes and contributing. Group discussed the different categories of coping skills which included distraction, emotional release, grounding, self-love, and thought challenging.? Pt participated in creating a coping skills ?menu? from the five categories of coping skills. Pt's coping skill menu included: exercise, meditation, engaging in hobby, and identifying small delight from day. Appeared to benefit from increasing repertoire of healthy coping skills. Will continue IOP tx to increase consistent use of healthy coping, challenge negative thoughts, and prevent decompensation.
--- NOTE | 2023-07-25 09:05 | BH.SGPN.GN ---
Behaviors/Verbalizations/Mental Status: [] Eye contact is good. Motor activity is appropriate. Appearance is casual. Speech is Appropriate. Mood is irritable. Affect is congruent. Thoughts are linear and logical. No evidence of psychosis. Reviewed daily check in sheet and no reports of suicidal ideations or intent. Client Response/Progress/Benefit: [] Pt participated at times during the group discussion. Attentive. Daily symptom tracker notes 3/5 for depression, anxiety, and agitation. Pt reports struggling with irritability this AM and elaborated on triggers and its impact on her perspective and functioning. Feels apathetic stating its just like pierce whatever . Vented on current psychosocial stressors. Was open to feedback and thoughts challenging. Benefited from group support, encouragement, and feedback. Will continue in IOP to prevent decompensation, stabilize mood, and increase healthy coping. Narrative Note: []
--- NOTE | 2023-07-25 10:10 | BH.SGPN.GN ---
Behaviors/Verbalizations/Mental Status: []Pt alert and oriented, neatly dressed and groomed. Eye contact good. Motor activity appropriate. Speech within normal limits. Affect congruent, mood engaged but stressed. Thoughts linear, logical, no signs of hallucinations or delusions. Client Response/Progress/Benefit: [] Pt active participant AEB pt providing input throughout group discussion. Pt attentive during psychoeducation about defense mechanisms. Showed engagement during small group discussions and helped group identify which defense mechanisms were maladaptive, adaptive, or ?somewhere in the [place].? Pt started to work with group on identifying how each defense mechanism can impact mental health and gave examples. Pt gave personal example of using sublimination and projection recently. Seemed to benefit from gaining awareness about the different defense mechanisms. Pt to continue IOP tx to promote mood stability, increase emotional regulation skills, and reduce avoidance. Narrative Note: []
--- NOTE | 2023-07-25 10:10 | BH.SGPN.GN ---
Behaviors/Verbalizations/Mental Status: []Pt alert and oriented, casually dressed and groomed. Eye contact good. Motor activity appropriate. Speech within normal limits. Affect congruent, mood tired and engaged. Thoughts linear, logical, no signs of hallucinations or delusions. Client Response/Progress/Benefit: [] Pt active participant AEB pt providing input throughout group discussion. Pt attentive during psychoeducation about defense mechanisms. Showed engagement during small group discussions and helped group identify which defense mechanisms were maladaptive, adaptive, or ?somewhere in the [place].? Pt started to work with group on identifying how each defense mechanism can impact mental health and gave examples. Pt gave personal examples of how she used sublimination which kept pt from making an impulsive decision. Seemed to benefit from gaining awareness about the different defense mechanisms. Pt to continue IOP tx to improve mood stability, increase emotional regulation skills, and further reduce intensity of symptoms. Narrative Note: []
--- NOTE | 2023-07-25 10:31 | BH.MDN_ITS ---
Multi-Disciplinary Note Note 45-min Individual: Time Started:: 12:08 Date: 07/25/23 Purpose of session/treatment goals addressed:: To address tx plan goal #1 objectives #1 & #2. Eye Contact:: Good Motor Activity:: Appropriate Appearance:: Casual Speech:: Appropriate Mood:: Anxious and Dysthymic Affect:: Congruent Thoughts:: Linear, Logical and No evidence of hallucinations/delusions noted Staff Interventions:: motivational interviewing, mindfulness skills, strengths perspective, goal setting, taught coping skills (ACT concept of riding the wave ) and other (ACT techniques) Client Response:: Pt receptive of session, actively engaged and openly discussed current sx, stressors, and treatment progress throughout session. Pt discussed experiencing a recent influx in nightmares, encouraging her to restore her david and begin actively engaging in spiritual self-care. Reports wanting to return to regular prayer, as well as begin a daily practice in gratitude. Pt described improved ability to challenge and shift her perspective since beg inning the IOP program, noting reduced paranoia about her interpersonal relationships as a result. Pt has been trying to improve her engagement with her younger daughters and noted using opposite action to go for a walk with them over the weekend. Pt reports struggling with anxiety throughout the entirety of the walk, describing intrusive thoughts that he boyfriend is cheating or texting someone else. Pt able to recognize these thoughts are largely distorted in nature and provided insight that the more she gave the thoughts attention the stronger they became. Shared despite knowing the thoughts are likely irrational and false, she was close to tears by the end of the walk. Identified a desire to improve her ability to manage these thoughts and give them less value. Pt receptive of practicing an ACT intervention aimed at ?Accepting Distress? in which pt engaged in a drawing activity while practicing acknowledging, but not engaging with her thoughts as they arise. Pt identified a goal to practice this throughout the week while engaging in self-care activities. Risks/Concerns:: Denies any suicidal ideation, plan, or intent as of this date 07/25/23. Progress Toward Goals/Plan:: Pt is reporting decreased depression and anxiety. Pt still reports mild to moderate anxiety and depression, but notes improvement. Pt reports having improved motivation to get out of the house and engage with her younger daughters. She is actively working on sitting with the uncomfortable to reduce intrusive anxious thoughts reinforcing paranoia and mistrust in her current relationship. Pt wants to work on being able to manage crises more effectively, better trust herself and others, as well as improve her relationship with her self and her children. Per pt's DSM 5 cross-cutting scores at review her overall mental health symptoms have decreased by 5%. Time Stopped:: 12:48
--- NOTE | 2023-07-25 11:10 | BH.SGPN.GN ---
Behaviors/Verbalizations/Mental Status: []Pt alert and oriented, casually dressed and groomed. Eye contact good. Motor activity appropriate. Speech within normal limits. Affect congruent, mood stressed. Thoughts linear, logical, no signs of hallucinations or delusions. Client Response/Progress/Benefit: [] Pt responded well to session, participating in activity and small group discussion. Group reviewed the rest of the defense mechanisms and discussed how these are adaptive, maladaptive, or somewhere in the [place]. Pt participated in the experiential activity which encouraged pts to draw a castle that portrayed their different defense mechanisms. Pt's defense mechanisms included denial, anticipation, humor, sublimination, and suppression. Pt shared she has worked to reduce her use of humor to deflect from real issues and that has been helpful. Pt reports wanting to work on reducing suppression. Pt appeared to benefit from gaining insight to the different defense mechanisms and learning coping skills. Pt will continue IOP tx to prevent decompensation, improve daily functioning, and increase healthy coping skills. Narrative Note: []
--- NOTE | 2023-07-26 16:10 | BH.TPR ---
Treatment Plan Review Demographics Date of Admission:: 07/05/23 Date of Treatment Plan Review:: 07/26/23 Admitting Diagnoses:: 1. PTSD 2. Major depressive disorder recurrent, severe without psychosis 3. Generalized anxiety disorder Current Diagnoses:: 1. PTSD 2. Major depressive disorder recurrent, severe without psychosis 3. Generalized anxiety disorder Patient Status Patient's Response to Treatment:: Pt has responded well to treatment AEB consistent attendance to sessions and active engagement. Pt contributes to group discussions and reports follow through on using skills outside treatment environment. She is actively involved in individual sessions, takes an active role in treatment goal setting, is processing what she is learning, and completes all homework. Status of Current Problems and Symptoms: Pt is reporting decreased depression and anxiety. Pt still reports mild to moderate anxiety and depression, but notes improvement. Pt reports having improved motivation to get out of the house and engage with her younger daughters. She is actively working on sitting with the uncomfortable to reduce intrusive anxious thoughts reinforcing paranoia and mistrust in her current relationship. Pt wants to work on being able to manage crises more effectively, better trust herself and others, as well as improve her relationship with her self and her children. Per pt's DSM 5 cross-cutting scores at review her overall mental health symptoms have decreased by 5%. Progress Problem #1: Problem Name:: Anxiety, panic Status of Goals:: Obj 1 - met, ongoing work encouraged. Pt is able to identify healthy calming skills like breathing, grounding, meditation, taking breaks, and mindfulness. Pt has reported improvement with using these skills but could benefit from reinforcement to demonstrate consistency of skill use. Pt is also working on reducing safety behaviors which may explain way sx reduction is not more significant. Per DSM 5 her anxiety has reduced by 8%. Obj 2 - progress noted, ongoing work encouraged. Pt can identify several distortions reinforcing her anxiety and mood instability, She is able to challenge these after the fact but continues to struggle with doing so in the moment. Team Recommendations:: Team recommends continued work on current goals and objectives to reinforce skills. Will focus on improving exposure response to triggers and use of adaptive skills when anxious. Problem #2: Problem Name:: Mood instability, irritability, Depression Status of Goals:: Obj 1 ? progress with ongoing progress encouraged. Client can identify healthy behavior activation activities such as self-care and improved socialization; however has not created a concrete plan. Pt has begun improving engagement in some of the activities identified. Per DSM 5 client's depression has maintained. Irritability also maintained without change. Obj 2 - met. Client can identify several skills for managing depressive sx such as engaging in activities she enjoys, positive self-talk, and improving communication/boundaries with supports. Pt however struggles with consistent skill application which may explain no progress in sx reduction. Team Recommendations:: Team recommends continued work on current goals and objectives to reinforce skills. Will focus on helping client identify ways to start trusting others and start building a healthy support network.
--- NOTE | 2023-07-27 10:05 | BH.SGPN.GN ---
Behaviors/Verbalizations/Mental Status: []Pt alert and oriented, neatly dressed and groomed. Eye contact good. Motor activity appropriate. Speech within normal limits. Affect congruent, mood anxious. Thoughts linear, logical, no signs of hallucinations or delusions. Client Response/Progress/Benefit: [] Pt was engaged and open to the discussion and appeared to respond well to the group. Pt used active listening and gave feedback during group discussion. Group discussed what contributes to a person?s perspective and how perspective can positively or negative impact mental health treatment. Pt shared their perspective today is still hopeful, but a little negative due to hearing that her aunt was hospitalized yesterday. Pt stated that coming to IOP and being around people helps challenge her perspective. Pt appeared to benefit from increasing awareness of different perspectives and how they can affect mental health. Pt will continue IOP treatment to prevent decompensation, increase distress tolerance skills, and improve daily functioning. Narrative Note: []
--- NOTE | 2023-07-27 11:15 | BH.SGPN.GN ---
Behaviors/Verbalizations/Mental Status: []Pt alert and oriented, casually dressed and groomed. Eye contact good. Motor activity appropriate. Speech within normal limits. Affect congruent, mood anxious and euthymic. Thoughts linear, logical, no signs of hallucinations or delusions. Client Response/Progress/Benefit: []Pt was attentive and contributed to group discussion. Pt worked with group to identify strategies that can help with challenging negative perspective. Pt completed strengths exploration worksheet, identifying curiosity, love, self-control, intelligence, spirituality, humor, adventurousness, and empathy as personal strengths. Pt able to acknowledge how these strengths are helping pt and can continue to help pt in mental health journey. Pt identified wanting to work on re-engaging in her hobbies as a means of perspective challenging. Benefited from identifying personal strengths and strategies for enhancing use of identified strengths. Pt will continue IOP tx to promote mood stability, increase consistent application of healthy coping skills, reduce paranoia, and prevent decompensation. Narrative Note: []
--- NOTE | 2023-08-01 10:15 | BH.SGPN.GN ---
Behaviors/Verbalizations/Mental Status: [] Eye contact is good. Motor activity is appropriate. Appearance is casual. Speech is Appropriate. Mood is anxious. Affect is congruent. Thoughts are linear and logical. No evidence of psychosis. Client Response/Progress/Benefit: [] Pt was an engaged participant AEB listening attentively to others, taking notes, and providing feedback in small group discussions. Attentive during psychoeducation AEB by note taking and providing some input. Pt worked along with peers in small groups to define inappropriate guilt and appropriate guilt. Interactive discussion on examples of both inappropriate and appropriate guilt. Pt able to connect impact inappropriate guilt can have on MH. Benefited from increased awareness of guilt and the differences between appropriate and inappropriate guilt. Will continue in IOP to improve healthy coping skills, challenge negative/distorted thoughts, and prevent decompensation.
--- NOTE | 2023-08-01 11:15 | BH.SGPN.GN ---
Behaviors/Verbalizations/Mental Status: []Pt alert and oriented, casually dressed and groomed. Eye contact good. Motor activity appropriate. Speech within normal limits. Affect congruent, mood content, anxious. Thoughts linear, logical, no signs of hallucinations or delusions. Client Response/Progress/Benefit: [] Pt engaged participant AEB listening attentively to others and providing input throughout group. Pt worked within their small group to identify strategies to manage inappropriate guilt. Shared a personal example of inappropriate guilt as not going to an event in order to take time for her own mental health needs. Insight this cues a fear of disappointing and reinforces a desire to people please . Pt wants to work on combatting inappropriate guilt by challenging distortions, improving use of anxiety management skills, and focusing on self-compassion. Pt seemed to benefit from learning about strategies to manage appropriate and inappropriate guilt. Pt will continue IOP tx to reduce promote mood stability, reinforce healthy boundaries, promote skill application, and prevent decompensation. Narrative Note: []
--- NOTE | 2023-08-02 09:05 | BH.SGPN.GN ---
Behaviors/Verbalizations/Mental Status: [Patient was alert and oriented, appropriately dressed and groomed. Eye contact was good, motor activity normal, speech within normal limits. Affect flat, mood aggravated. Thoughts linear, logical, no signs of hallucinations or delusions. Reviewed Patients symptom tracker and the patient reports depressed mood, anxiety/panic attacks, agitation/irritability/anger, self-harm urges, and thoughts/risk of suicide within normal limits.] Client Response/Progress/Benefit: [Patient was engaged and open to the discussion. Patient reported his mood to be ?Annoyed?. Patients stressor is that she did not get to sleep very well last night because her boyfriend was up and down all night. She shared she also had bad dreams, so she woke up ?in a bad mood?. Patients first win is that her daughter and mother helped clean the upstairs of her house and went through things they didn?t need anymore. She shared this was a big task and was thankful for her mother and daughters help. Patients second win is that she went through her food in her house and got rid of it. Patient was interactive and respectful with other group members about their mental wins and stressors. Patient benefited from the discussion by listening to feedback and giving input on her peer?s stressors and mental health wins. Patient will continue with IOP treatment to help develop healthy skills, promote mood stability, and improve distress tolerance. ] Narrative Note: []
--- NOTE | 2023-08-02 10:15 | BH.SGPN.GN ---
Behaviors/Verbalizations/Mental Status: [] Eye contact is good. Motor activity is appropriate. Appearance is casual. Speech is Appropriate. Mood is anxious/irritable. Affect is congurent. Thoughts are linear and logical. No evidence of psychosis. Client Response/Progress/Benefit: [] Pt participated at times. Attentive. Participated in and was engaged during experiential activity. Able to relate activity to group topic of FOF. Engaged during interactive discussion on what failure means to the group in which peers identified and defined failure. Group was able to identify impact of fear of failure on mental health identifying that it can cause isolation, procrastination, resentment, and complacency . Attentive during interactive discussion on the role that FOF plays in mental wellness, depression, anxiety, and growth. Benefited from increased awareness of how the role that FOF plays in mental health and decision-making. Will continue in IOP prevent decompensation, increase healthy coping, and to stabilize mood. Narrative Note: []
--- NOTE | 2023-08-02 11:10 | BH.SGPN.GN ---
Behaviors/Verbalizations/Mental Status: []Pt alert and oriented, neatly dressed and groomed. Eye contact good. Motor activity appropriate. Speech within normal limits. Affect congruent, mood euthymic. Thoughts linear, logical, no signs of hallucinations or delusions. Client Response/Progress/Benefit: [] ?Pt responded well to session, engaged in the experiential activity and attentive throughout group processing. Pt reported fear of failure has kept Pt from going to college and having a baby. Pt completed fear of failure worksheet and was able to identify thoughts and behaviors that reinforce personal fear of failure including self-doubt, past failures, and negative/distorted thought patterns. Pt participated in group discussion regarding strategies to overcome fear of failure. Identified wanting to work on practicing giving herself validation by starting an accomplishment journal. Appeared to benefit from increased knowledge of strategies to combat fear of failure and gaining self-awareness. Pt will continue IOP tx to reduce negative thinking patterns, increase emotional regulation skills, and improve daily functioning. Narrative Note: []
--- NOTE | 2023-08-02 11:37 | PCM.BH.PN ---
Progress Note Progress Note: History of Present Illness/Interim History: The patient is a 43-year-old female with a history of PTSD, depression and anxiety who is seen in follow-up at the [facility] behavioral health IOP. I last saw the patient 2 weeks ago and at that time her Abilify and BuSpar doses were increased. The patient is tolerating the medication changes well. Her appetite is improved and she is no longer losing weight. Her sleep has improved also to 6 or more hours of sleep at night and she feels much more well rested in the morning. Her anxiety also has lessened and she feels more mellow . She is much less irritable than before the dose increased also. She denies any panic attacks in almost a month. Much less depressive symptoms. She is engaged in the IOP and making progress according to the staff and the patient feels she is learning valuable skills. The patient wishes to stay on her current doses of medications as she does not like taking medications and feels these doses are benefiting her. Current Psychiatric Medications: [] Abilify 5 mg p.o. daily (x 2 weeks); BuSpar 20 mg p.o. twice daily (x 2 weeks) Mental Status Examination: [] The patient is a 43-year-old female who has glasses and appears younger than stated age and is casually dressed and groomed with good hygiene. She is ambulatory with a normal gait and has no psychomotor agitation or retardation. Eye contact is good and speech is normal rate and rhythm and fluent with no pressure. Mood is mildly anxious. Affect is full and normal. Thought process is goal-directed and organized. Thought content: The patient is hopeful for the future. There is no evidence of passive thoughts of , suicidal ideation, plan for suicide, homicidal ideation, hallucinations or delusions. Reality testing is intact. Judgment is intact. Insight is good. Impulsivity is moderate. Diagnoses: [] 1. PTSD 2. Major depressive disorder, recurrent, severe without psychosis (improving) 3. Generalized anxiety disorder 4. Primary support and work issues Plan: [] The patient will continue the IOP in behavioral health at [facility] as the structure, support, education and group therapy will hopefully prevent worsening of the patient's symptoms. She felt safe during the interview and if it anytime she does not feel safe she will let us know or go to the emergency room. No medication changes were made today. The patient will continue to follow-up with her outpatient providers and I will see the patient in follow-up in 2 to 3 weeks.
--- NOTE | 2023-08-03 09:00 | BH.SGPN.GN ---
Behaviors/Verbalizations/Mental Status: [] Eye contact is good. Motor activity is appropriate. Appearance is casual. Speech is Appropriate. Mood is depressed/irritable. Affect is congruent. Thoughts are linear and logical. No evidence of psychosis. Reviewed daily check in sheet and no reports of suicidal ideations or intent. Client Response/Progress/Benefit: [] Pt participated at times during the group discussion. Attentive. Daily symptom tracker notes 08/14 for depression and irritability. She was able to identify several mental health wins from yesterday. She continues to completing small tasks and be ok with it . Struggled in the recent past with feeling urge or compelled to complete house task at once. Believed if she didn't she was a failure. Goals to deep clean her house however is taking this room by room in an effort not to overwhelmed herself and cause distress. She also reported utilizing anger mgmt skills yesterday when talking with support which prevented situation from escalating. Stressors continue to revolve around stressful mornings with her children. Overall feels that IOP and medications have improved her mood. Benefited from group support, encouragement, and feedback. Will continue in IOP to prevent decompensation, increase healthy coping,and stabilize mood. Narrative Note: []
--- NOTE | 2023-08-03 10:10 | BH.SGPN.GN ---
Behaviors/Verbalizations/Mental Status: []Pt alert and oriented, casual appearance. Eye contact good. Motor activity appropriate. Speech within normal limits. Affect congruent, mood euthymic. Thoughts linear, logical, no signs of hallucinations or delusions. Client Response/Progress/Benefit: [] Client engaged participant AEB completing self-assessment worksheet and providing input throughout discussion. Client completed worksheet identifying current self-care practices and what self-care activities client wants to start using. Client selected psychological self-care to begin practicing more consistently. Client plans to do this by using distract, delay and decide strategy and working on setting boundaries. Appeared to benefit from completing the self-care evaluation and gaining insights into current self-care practices, as well as identifying areas in which client would like to improve upon. Client will continue IOP tx to continue use of healthy coping skills, challenge distortions, and prevent decompensation.
--- NOTE | 2023-08-03 11:10 | BH.SGPN.GN ---
Behaviors/Verbalizations/Mental Status: []Pt alert and oriented, appearance appropriate. Eye contact good. Motor activity appropriate. Speech within normal limits. Affect congruent, mood content. Thoughts linear, logical, no signs of hallucinations or delusions. Client Response/Progress/Benefit: [] Client engaged participant AEB completing self-assessment worksheet and providing input throughout discussion. Client completed worksheet identifying current self-care practices and what self-care activities client wants to start using. Client selected financial and psychological self-care to begin practicing more consistently. Client plans to do this by being more consistent with reducing unnecessary spending and journaling more often. Appeared to benefit from completing the self-care evaluation and gaining insights into current self-care practices, as well as identifying areas in which client would like to improve upon. Client will continue IOP tx to promote skill application, improve mood stability, and prevent decompensation. Narrative Note: []
--- NOTE | 2023-08-03 11:50 | BH.MDN_ITS ---
Multi-Disciplinary Note Note 60-min Individual: Time Started:: 12:05 Date: 08/03/23 Purpose of session/treatment goals addressed:: To address tx plan goal #1 objectives #1. Additionally began discharge planning. Eye Contact:: Good Motor Activity:: Appropriate Appearance:: Casual Speech:: Appropriate Mood:: Euthymic and Anxious Affect:: Congruent Thoughts:: Linear, Logical and No evidence of hallucinations/delusions noted Staff Interventions:: thought challenging, psychoeducation on: (distress tolerance skills), CBT techniques, mindfulness skills and strengths perspective Client Response:: Pt responded well to session, actively engaged th roughout. Reports that ?things have been variable?, noting that self-care continues to improve and she is gaining self-confidence. Pt described making an effort to improve her physical wellbeing as her father had his first heart attack at 40 and pt is now 43. Explained this includes reducing caffeine, eating more than once a day, and challenging herself to do something physical daily. Pt Noted that she has additionally made progress in setting boundaries and not allowing people pleasing tendencies to affect her ability to maintain these boundaries. Provided an example in which she declined to visit her grandmother, whom has significant memory issues, for her birthday as she knew she did not have the emotional bandwidth to do so that day. Pt instead sent a gift along with her mother and made plans to visit her grandmother on another day. Described trying to be ?more intentional about who I surround myself with?. Went on to discuss that in doing so she is continuing to second guess her current relationship and the impact it has on her mental health. Noted that she has been trying to remind herself ?I need to live my life and not decide what I?m doing based on ?what if?s? or trying to force trust where it isn?t. Pt shared that at times she can adhere to this and allow herself to sit with the uncomfortable. During those times pt can focus on her own self-care and mental health needs rather than ruminate on the relationship and fears of infidelity. However, this continues to be inconsistent. Pt provided and example of a recent incident in which she began ruminating because her boyfriend was not home. Shared the intrusive thoughts and discomfort led to pt numbing herself with marijuana. Able to recognize long-term this actually reinforced her anxiety as well as made her feel worse in the moment. Shared ?a healthier distraction would have given me something more constructive to focus on?. Did well to work with therapist on identifying specific skills she can use or activities to engage in to better manage her intrusive thoughts. Identified belly breathing, changing her environment, and going for a walk, or doing something with her daughters. Pt and therapist discussed creating a concrete coping plan to prevent forgetting in the moment. Pt will work with therapist to do so in additional sessions. Risks/Concerns:: Denies any suicidal ideation, plan, or intent as of this date 08/03/23. Progress Toward Goals/Plan:: Pt continues to report decreased depression and improved confidence in herself and her ability to make healthy decisions in order to bet support her mental health. Indicates increased self-care, positive self-talk, healthier boundaries, and reduction of inappropriate guilt. Continues to struggle with irritability at times, feeling disconnected from relationships, and unwanted intrusive thoughts about her relationship. Pt would benefit from continuing the IOP program to further promote application of adaptive skills, improve mood stability, reinforce boundaries, and prevent decompensation. Time Stopped:: 13:02
--- NOTE | 2023-08-08 09:00 | BH.SGPN.GN ---
Behaviors/Verbalizations/Mental Status: [] Eye contact is good. Motor activity is appropriate. Appearance is casual. Speech is Appropriate. Mood is euthymic. Affect is full. Thoughts are linear and logical. No evidence of psychosis. Reviewed daily check in sheet and no reports of suicidal ideations or intent. Client Response/Progress/Benefit: [] Pt was an active participant in group discussions. Attentive. Daily symptom tracker notes 3/5 for depression and irritability. 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 Discussed intrusive dreams which are negative which impact her sleep and functioning. She talked briefly about the dreams and group empathized and provided some positive feedback. She continues to complete tasks noting I finished cleaning the house . She is proud of herself for cleaning the house in small intervals so as to not overwhelmed herself. Overall notes improved mental health, decreased anger/irritability, decreased impulsivity, and decreased racing/rumination thoughts. Assertively communicated with support yesterday which also decreased stress. Progress noted per pt report. Will continue in IOP to maintain gains and increase healthy coping. Narrative Note: []
--- NOTE | 2023-08-08 10:15 | BH.SGPN.GN ---
Behaviors/Verbalizations/Mental Status: []Pt alert and oriented, casually dressed and groomed. Eye contact good. Motor activity appropriate. Speech within normal limits. Affect congruent, mood content. Thoughts linear, logical, no signs of hallucinations or delusions. Client Response/Progress/Benefit: [] Pt responded well to session AEB contributing to small group discussion, taking notes, and listening attentively to others. Group discussed the benefits of managed anger and anger as a secondary emotion. Pt shared perspective on personal benefits of anger as maintaining one's boundaries. Pt completed worksheet on anger triggers and personal warning signs of anger. Pt identified a common trigger as witnessing someone or an animal being mistreated. Appeared to benefit from increased knowledge of the anger cycle as well as personal triggers. Will continue IOP tx to promote mood stability, reduce distorted thought patterns and improve self-care, and improve daily functioning. Narrative Note: []
--- NOTE | 2023-08-08 11:15 | BH.SGPN.GN ---
Behaviors/Verbalizations/Mental Status: []Client alert and oriented, casually dressed and groomed. Eye contact fair. Motor activity appropriate. Speech within normal limits. Affect congruent, mood euthymic. Thoughts linear, logical, no signs of hallucinations or delusions. Client Response/Progress/Benefit: []Pt was engaged throughout AEB contributing to group discussion and self-reflection. Group finished processing cues to anger worksheet. Pt contributed as group brainstormed healthy coping skills for better managing anger which included: music, walking/exercise, taking a break, grounding tools, reflection, and journaling. Pt identified personal anger cycle able to make connections on how own thoughts/evaluations of a situation can worsen anger feelings. pt stated she will practice grounding and journaling/reflection as skill to manage anger. Pt appeared to benefit from identifying different techniques to manage anger as well as gaining awareness of potential consequences of unmanaged anger. Pt to continue IOP to challenge distorted thoughts, increase healthy coping, and prevent decompensation.
--- NOTE | 2023-08-10 09:02 | BH.SGPN.GN ---
Behaviors/Verbalizations/Mental Status: [] Eye contact good. Motor activity appropriate. Speech within normal limits. Affect congruent, mood euthymic. Thoughts linear, logical, no signs of hallucinations or delusions. Reviewed client?s symptom tracker, denies SI, plan, or intent as of 08/10/2023. Client Response/Progress/Benefit: [] Client receptive of session, attentive and willing to process with group. Identified mental health ?wins? as challenging herself to use opposite action and pay three months worth of bills ahead of time rather than spend on unnecessary purchases like she would usually. Stated reminding herself that she is not currently working and allowing herself to utilize her anxiety about this in a productive way. Additional win noted as asking her mother to move in with her to help with household responsibilities and reduce some of the pressure on pt. Reports current stressor as discussing this with her landlord to ensure an additional person on the lease would be approved. Did well to challenge her anxious thoughts and identify skills to aid in reducing catastrophizing before reaching out. Client appeared to benefit from group support and encouragement. Recommended continued IOP tx to continue to maintain gains and mood stability, as well as continue to promote consistent skill application, continue to improve ability to manage intrusive thoughts reinforcing anxiety, and prevent decompensation. Narrative Note: []
--- NOTE | 2023-08-10 10:15 | BH.SGPN.GN ---
Behaviors/Verbalizations/Mental Status: []Pt alert and oriented, neatly dressed and groomed. Eye contact good. Motor activity appropriate. Speech within normal limits. Affect congruent, mood euthymic. Thoughts linear, logical, no signs of hallucinations or delusions. Client Response/Progress/Benefit: [] Pt an active participant throughout. Participated during interactive discussion on defining conflict (internal/external) and possible benefits to conflict. Attentive during psychoeducation on conflict styles and engaged during small group activity in which peers identified the benefits and consequences to each conflict style. Pt identified their primary conflict style as accommodating type. PT stated this style impacts her mental health and relationships because pt often feels like her ?cup is empty? and she stores resentment for a lot of people. Benefited from increased awareness of the impact of conflict styles in mental health. Will continue IOP tx to promote use of healthy coping skills, improve self-compassion, and reduce negative thinking patterns. Narrative Note: []
--- NOTE | 2023-08-10 11:10 | BH.SGPN.GN ---
Behaviors/Verbalizations/Mental Status: [] Eye contact is good. Motor activity is appropriate. Appearance is casual. Speech is Appropriate. Mood is euthymic. Affect is full. Thoughts are linear and logical. No evidence of psychosis. Client Response/Progress/Benefit: [] Pt was an active participant in group discussions and activity. Attentive during psychoeducation on the benefits and drawback of each conflict style. Along with peers was able to reflect on what conflict resolution skills can be useful outside of IOP. Pt chose to continue to work on the conflict resolution skill of not stonewalling . Benefited from practicing and learning conflict resolution skills during group activity. Able to relate activity back to group topic. Will continue in IOP to prevent decompensation, increase healthy coping, stabilize mood, and improve functioning to return to work. Narrative Note: []
== END 2023-08-10 23:59 ==
LOC: BHIOP 07:51
PROVIDERS: PCP Internal Medicine; Referring Provider Psychiatry & Neurology Psychiatry; Visit Provider Psychiatry & Neurology Psychiatry
DX: F33.2 Major depressive disorder, recurrent severe without psychotic features (principal); F41.1 Generalized anxiety disorder; F43.10 Post-traumatic stress disorder, unspecified
CPT/HCPCS: 99213; 99214; H2012; H2020; S9480; 90834; 90837

== ENCOUNTER 2023-08-11 06:57 | Outpatient (RCR) | payer MEDICAID, SELFPAY ==
[2023-08-11 00:39] VITALS: BP 127/94; PULSE 71
--- NOTE | 2023-08-11 09:05 | BH.SGPN.GN ---
Behaviors/Verbalizations/Mental Status: [Patient was alert and oriented, appropriately dressed and groomed. Eye contact was good, motor activity normal, speech within normal limits. Affect congruent, mood content. Thoughts linear, logical, no signs of hallucinations or delusions. Reviewed Patients symptom tracker and the patient reports depressed mood, anxiety/panic attacks, agitation/irritability/anger, self-harm urges, and thoughts/risk of suicide within normal limits.] Client Response/Progress/Benefit: [Patient was engaged and open to the discussion. Patient reported her mood to be ?content and mellow?. Patients first win is that she was able to stick to the boundaries she set with her children this week. She had told them that she wanted them to stay home and help her move their bedrooms and that no friends could stay the night this weekend. She almost gave in when they asked if they could go spend the night somewhere but held firm. She stated she also just needed to not worry about someone else?s child this weekend. Patients second win is that a few days ago her boyfriend hurt her feelings but was able to walk away and process this before coming back to him yesterday and telling him how it made her feel. She said normally she would make a sarcastic remark or turn it into a fight, but they were able to talk through it calmly?. Patients stressor is that she is waiting to hear from her landlord about whether her mother can move into her house. She said this would be beneficial if she did because she could help with the kids and the house when she needed it. The patient did state that it would be okay if the landlord said no though because then she could ?just move into a new house?. Patient was interactive and respectful with other group members about their mental wins and stressors. Patient benefited from the discussion by listening to feedback and giving input on her peer?s stressors and mental health wins. Patient will continue with IOP treatment to help develop healthy skills, promote mood stability, and improve distress tolerance. ] Narrative Note: []
--- NOTE | 2023-08-11 10:15 | BH.SGPN.GN ---
Behaviors/Verbalizations/Mental Status: []Pt alert and oriented, neatly dressed and groomed. Eye contact good. Motor activity appropriate. Speech within normal limits. Affect congruent, mood euthymic. Thoughts linear, logical, no signs of hallucinations or delusions. Client Response/Progress/Benefit: [] Pt connected with topic of anxiety and participated throughout, providing input and taking notes. Participated throughout interactive discussion defining anxiety and identifying cognitive and physiological symptoms of anxiety. Group discussed how anxiety can prevent them from trying new things. Pt identified physical signs of anxiety as getting hot and sweaty, shortness of breath, and upset stomach. Pt identified cognitive signs as negative thinking patterns and dissociating. Benefited from increased awareness and insight on anxiety and its impact. Pt will continue IOP tx to promote mood stability, increase distress tolerance skills, and improve self-confidence. Narrative Note: []
--- NOTE | 2023-08-11 11:10 | BH.SGPN.GN ---
Behaviors/Verbalizations/Mental Status: []Pt alert and oriented, neatly dressed and groomed. Eye contact good. Motor activity appropriate. Speech within normal limits. Affect congruent, mood euthymic. Thoughts linear, logical, no signs of hallucinations or delusions. Client Response/Progress/Benefit: []Pt was an active participant AEB pt providing input and listening attentively to peers. Attentive during psychoeducation on mindfulness coping skills and their impact on reducing anxiety and improving overall mental health wellness. Group was able to identify self-soothing and mind-based coping skills which included: 5-senses, meditation, deep breathing, journaling, and progressive muscle relaxation. Pt also participated with peers in practicing mindfulness skills in session. Pt would like to work on using ?thoughts are thoughts not facts? as a mind-based technique. Appeared to benefit from increasing repertoire of anxiety reduction skills. Pt will continue in IOP tx to promote mood stability, increase use of healthy coping skills, and reduce negative thinking patterns. Narrative Note: []
--- NOTE | 2023-08-11 12:40 | BH.MDN ---
Multi-Disciplinary Note Note 45-min Individual: Time Started:: 12:05 Date: 08/11/23 Purpose of session/treatment goals addressed:: To address tx plan goal #2, obj #1 & #2. Eye Contact:: Good Motor Activity:: Appropriate Appearance:: Neat and Casual Speech:: Appropriate Mood:: Euthymic and Anxious Affect:: Congruent Thoughts:: Linear, Logical and No evidence of hallucinations/delusions noted Staff Interventions:: motivational interviewing, CBT techniques, strengths perspective, goal setting and taught coping skills (reviewed behavior activation and grounding skills) Client Response:: Pt receptive of session, openly discussed areas of progress as well as ongoing sx and stressors. Shared feeling proud as she has successfully cut caffeine down to 2 caffeinated beverages a day and is supplementing with other non-caffeinated drinks otherwise. Continued struggles with consuming water and identified a goal of drinking at least one cup of water a day by the time summer arrives. Went on to discuss improved ability to enforce her boundaries with her children and shared 2 examples of this. Discussed not giving in when her daughter called late at night and asked pt to drive to [employer] to take her to the store. Noting that in the past she would have overextended herself and done so, despite not wanting to. Additionally reports setting a boundary with her daughters about not having any friends over this weekend so that pt can utilize that time for self-care rather than monitoring the girls the entire time. Discussed plans to move the playroom upstairs to reduce unnecessary excess noise downstairs, which is often a trigger for pt. Additional goal to reach out to a friend and spend time catching up with them as well as using this as an excuse to get out of the house. Identified that although she has been making progress, she feels she has been struggling with isolation and feels that getting out of the house would help to break the desire to continue to isolate. Risks/Concerns:: Denies any suicidal ideation, plan, or intent as of this date 08/11/23. Progress Toward Goals/Plan:: Pt continues to report an overall improvement in her mental health and ability to cope with unexpected stressors or anxiety triggers. She is taking steps to continue to improve her ability to sit with the uncomfortable, actively practicing grounding skills, following through with identifying and maintaining her boundaries, as well as better regulating her emotions under stress. Reports feeling more hopeful and present as a result. Continues to endorse some depression and lack of interest, relationship anxiety and difficulties navigating each other?s communication styles, as well as isolation. Pt would benefit from continuing the IOP program to further promote application of coping skills, maintain mood stability, reinforce boundaries, and prevent decompensation. Time Stopped:: 12:35
--- NOTE | 2023-08-15 08:52 | BH.MDN ---
Multi-Disciplinary Note Note 30-min Individual: Time Started:: 11:54 Date: 08/15/23 Purpose of session/treatment goals addressed:: To address tx plan goal #1 & #2. Eye Contact:: Good Motor Activity:: Appropriate Appearance:: Casual Speech:: Appropriate Mood:: Dysthymic Affect:: Congruent Thoughts:: Linear, Logical and No evidence of hallucinations/delusions noted Staff Interventions:: thought challenging, motivational interviewing, psychoeducation on: (healthy boundaries), CBT techniques, strengths perspective and goal setting Client Response:: Pt responded well to session, actively engaged throughout. Reports having several positives as well as stressors over the past several days. Discussed following through with two of her goals and moved the playroom upstairs, as well as made time for herself away from her children on Monday. Shared going to get a pedicure and felt proud of herself for allowing time for self-care. Pt went on to describe current stressors which includes moving her mom into the house, caregiving responsibilities, and her relationship. Shared having her mother move in is eustress but will require making time to do so. Described ongoing difficulties in reinforcing boundaries with her two youngest daughters. Noted that this led to conflict with her boyfriend and him expressing the need for a break. Pt reports doing well not to jump to conclusions about the phrasing of ?needing a break?. Reports validating his concerns, expressing a boundary of not being spoken to disrespectfully, and has been sitting with the uncomfortable for the past day since the incident. Provided insight that her boundaries have been inconsistent with her daughters and reflected on the change occurring during her daughter?s struggle with cancer a few years ago. Reports feeling guilty and wanting them not to feel lonely or scared during that time. Noted this became a pattern of behavior and she has not adjusted her boundaries since her daughter has been in remission for several years now. Discussed self-compassion and forgiveness. Pt reports wanting to pursue family counseling and was receptive of several referrals for this. Willing to work with therapist to identify small steps she can take to improve her ability to establish and maintain more consistent boundaries, such as have her boyfriend or mother remind her of the boundaries she has. Able to identify the benefits of consistent boundaries for improving the health of the family dynamics. Risks/Concerns:: Denies any suicidal ideation, plan, or intent as of this date 08/15/23. Progress Toward Goals/Plan:: Pt continues to report an overall improvement in her mental health and ability to cope with unexpected stressors or anxiety triggers. She is taking steps to actively improve communication, boundaries, self-advocacy, and self-care. Pt does continue to struggle with guilt, becoming easily overwhelmed, and reassurance seeking. Pt would benefit from continuing the IOP program to further promote application of coping skills, maintain mood stability, reinforce boundaries, and prevent decompensation. Time Stopped:: 12:30
--- NOTE | 2023-08-15 09:05 | BH.SGPN.GN ---
Behaviors/Verbalizations/Mental Status: [] Eye contact is good. Motor activity is appropriate. Appearance is casual. Speech is Appropriate. Mood is euthymic. Affect is full. Thoughts are linear and logical. No evidence of psychosis. Reviewed daily check in sheet and no reports of suicidal ideations or intent. Client Response/Progress/Benefit: [] Pt participated at times during the group discussion. Attentive. Daily symptom tracker notes 3/5 for depression and 2/5 for anxiety/irritability. Mental health wins revolved around completing tasks and organizing which made me tired however she reports a sense of accomplishment from completing these tasks. Significant mental health win included going shopping by myself. She has not done this in a considerable amount of time only shopping with her children. She elaborated on the stress related to shopping with her children. Shopping provided distraction, purpose, meaning, stress relief, and time with herself all of which was a significant benefit to her mental health and decreased distress. She also shared utilizing Delay, Distract, Decide on a daily basis which has improved her emotional regulation, impulsivity, anger, and communication. Benefited from group support, encouragement, and feedback. Will continue in IOP to prevent decompensation, stabilize mood, increasing healthy coping, and improve functioning. Narrative Note: []
--- NOTE | 2023-08-15 10:10 | BH.SGPN.GN ---
Behaviors/Verbalizations/Mental Status: [] Client alert and oriented, casual appearance. Eye contact good. Motor activity appropriate. Speech within normal limits. Affect congruent, mood euthymic. Thoughts linear, logical, no signs of hallucinations or delusions. Reviewed client?s symptom tracker, no risk for suicidal ideation, plan, or intent. Client Response/Progress/Benefit: [] Pt receptive to session AEB contributing to small group discussion, as well as listening attentively to others, and taking notes. Worked with group to brainstorm the positive and negative aspects of stress on physical and mental health. Group did well to identify the benefits of stress as well as the impact of distress on performance, relationships, and mental health. Pt identified their personal top stressors as: Relationship, intrusive thoughts, and anxiety. Pt seemed to benefit from increased awareness of current stressors and impact stress has on mental health. Pt will continue IOP tx to promote healthy coping skills, improve distress tolerance, and prevent decompensation. Narrative Note: []
--- NOTE | 2023-08-15 11:15 | BH.SGPN.GN ---
Behaviors/Verbalizations/Mental Status: []Pt alert and oriented, casually dressed and groomed. Eye contact good. Motor activity appropriate. Speech within normal limits. Affect congruent, mood euthymic. Thoughts linear, logical, no signs of hallucinations or delusions. Client Response/Progress/Benefit: []Pt was an active participant in group discussions and experiential activity. Attentive during psychoeducation on the 4 A's (Avoid, adapt, alter, accept) of coping with stress. Shared that they would benefit most from working on altering her response to stress by continuing to set boundaries and ask for help. Was able to identify the connection between the experiential activity and utilization of stress management skills. Benefited from increased awareness of stress management strategies. Pt will continue IOP tx to improve mood stability, increase self-confidence, and further increase application of healthy coping skills. ? Narrative Note: []
--- NOTE | 2023-08-17 09:00 | BH.SGPN.GN ---
Behaviors/Verbalizations/Mental Status: [] Eye contact is good. Motor activity is appropriate. Appearance is casual. Speech is Appropriate. Mood is depressed. Affect is congruent. Thoughts are linear and logical. No evidence of psychosis. Reviewed daily check in sheet and no reports of suicidal ideations or intent. Client Response/Progress/Benefit: [] Pt participated at times during the group discussion. Attentive. Daily symptom tracker notes 3/5 for depression and 2/5 for anxiety/irritability. Emotion for today is mellow. Able to identify several mental health wins and healthy habits. She continues to utilize healthy anger mgm skills, reframing, challenging, and other strategies which have been beneficial. Overall her mood, relationships, and mental health are better. Discussed stressors and how she is managing them. Progress noted per pt report. Benefited from group support, encouragement, and feedback. Will continue in IOP to maintain gains, stabilize mood, and improve functioing to return to work. Narrative Note: []
--- NOTE | 2023-08-17 10:15 | BH.SGPN.GN ---
Behaviors/Verbalizations/Mental Status: []Client alert and oriented, casually dressed and groomed. Eye contact good. Motor activity appropriate. Speech within normal limits. Affect congruent, mood euthymic. Thoughts linear, logical, no signs of hallucinations or delusions. Client Response/Progress/Benefit: []Pt engaged in session AEB listening attentively to others and providing input throughout group discussion. Pt engaged in activity, able to connect how it can be uncomfortable and difficult to accept when things are out of one?s own control. Pt worked with group to identify what things in life can be hard to accept. Group identified things hard to accept as: disability, caregiving responsibilities, loss of relationship, mental health diagnosis, other?s behaviors, and past decisions. Pt identified struggling to accept being a single parent later in life. Seemed to benefit from increased awareness of importance of acceptance. Pt to continue IOP tx to further improve mood stability, continue to promote application of distress tolerance skills, and prevent decompensation. Narrative Note: []
--- NOTE | 2023-08-17 11:10 | BH.SGPN.GN ---
Behaviors/Verbalizations/Mental Status: []Pt alert and oriented, neatly dressed and groomed. Eye contact good. Motor activity appropriate. Speech within normal limits. Affect congruent, mood calm. Thoughts linear, logical, no signs of hallucinations or delusions. Client Response/Progress/Benefit: []Pt responded well to session AEB taking notes and contributing to discussion throughout. Pt engaged as group continued discussion on acceptance and the mental health benefits of practicing acceptance. Pt and peers identified what makes acceptance challenging and pt completed a self-reflection exercise on what is hard to accept in pt's life. Pt identified struggling to accept ?needing to set more boundaries.? Group identified strategies to increase acceptance and pt shared wanting to focus on adjusting her expectations. Pt appeared to benefit from gaining insight and learning strategies to increase acceptance. Pt will continue IOP tx to promote mood stability, increase distress tolerance skills, and improve ability to combat distortions. Narrative Note: []
--- NOTE | 2023-08-23 09:05 | BH.SGPN.GN ---
Behaviors/Verbalizations/Mental Status: [Patient was alert and oriented, appropriately dressed and groomed. Eye contact was good, motor activity normal, speech within normal limits. Affect congruent, mood annoyed. Thoughts linear, logical, no signs of hallucinations or delusions. Reviewed Patients symptom tracker and the patient reports depressed mood, anxiety/panic attacks, agitation/irritability/anger, self-harm urges, and thoughts/risk of suicide within normal limits.] Client Response/Progress/Benefit: [Patient was engaged and open to the discussion. Patient reported her mood to be ?Irritated. Patients stressor is that her job had informed her recently that her job had fired her instead of putting her on FMLA. Patient stated her job claimed they never got her FMLA paperwork and hadn?t told her until now that she was supposed to be returning to work. Patients first win is that she and her 19-year-old daughter have been getting along better since she has moved out. Patient was unable to identify a second win. Patient was interactive and respectful with other group members about their mental wins and stressors. Patient benefited from the discussion by listening to feedback and giving input on her peer?s stressors and mental health wins. Patient will continue with IOP treatment to help develop healthy skills, promote mood stability, and improve distress tolerance. ?] Narrative Note: []
--- NOTE | 2023-08-23 10:15 | BH.SGPN.GN ---
Behaviors/Verbalizations/Mental Status: [] Client alert and oriented, casually dressed and groomed. Eye contact good. Motor activity appropriate. Speech within normal limits. Affect congruent, mood euthymic. Thoughts linear, logical, no signs of hallucinations or delusions. Client Response/Progress/Benefit: []Client responded well to session AEB sharing and listening attentively to others. Group provided examples of benefits of having social support, including: ability to process emotions with, security, and confidence. Client also participated in group discussion regarding the barriers to accessing support including personal examples like: toxic people, lack of communication, and over using certain supports. Client participated in experiential activity illustrating the impact communication, boundaries, and patience play in creating healthy support systems. Client appeared to benefit from increased knowledge of the benefits of social support and greater self-awareness. Will continue IOP tx to regulate emotions, reduce negative self-talk, and improve overall functioning. Narrative Note: []
--- NOTE | 2023-08-23 11:10 | BH.SGPN.GN ---
Behaviors/Verbalizations/Mental Status: [] Client alert and oriented, casually dressed and groomed. Eye contact good. Motor activity appropriate. Speech within normal limits. Affect congruent, mood euthymic. Thoughts linear, logical, no signs of hallucinations or delusions. Client Response/Progress/Benefit: [] Client was an active participant throughout AEB contributing to discussion, providing personal examples, and taking notes. Client processed emotions felt in the activity and how they coped in the moment. Client provided input during discussion on the types of support our supports can provide. Client able to identify current support system and barriers that get in the way of using supports by drawing out their own support net. Client reported after identifying what type of supports they receive; they gained awareness that they could benefit from more emotional supports. Client identified steps to achieve this by going to social events, talk with friends more, and use advice that's given. Client shared increasing emotional supports will help them with more support in general. Client seemed to benefit from identifying the type of support client needs to work on improving. Client recommended to continue IOP tx to prevent decompensation, increase positive thought patterns, and increase emotional regulation skills. Narrative Note: []
--- NOTE | 2023-09-01 10:05 | BH.SGPN.GN ---
Behaviors/Verbalizations/Mental Status: [] Eye contact is good. Motor activity is appropriate. Appearance is casual. Speech is Appropriate. Mood is euthymic. Affect is full. Thoughts are linear and logical. No evidence of psychosis. Client Response/Progress/Benefit: [] Pt receptive of session, actively engaged throughout AEB taking notes, providing input, and contributing in small group discussion. Appeared to connect with group topic of automatic thoughts and cognitive distortions and the impact of thought patterns on mental health, coping behaviors, and relationships. This particular group is very heavy on psychoeducation however pt appeared to connect with distortions and how they can impact functioning. Pt appeared to benefit from gaining insight on distorted thinking patterns and how this impacts overall mental health. Will continue IOP to maintain gains, increase healthy coping, and improve daily functioniong. Narrative Note: []
--- NOTE | 2023-09-01 11:10 | BH.SGPN.GN ---
Behaviors/Verbalizations/Mental Status: []Eye contact is good. Motor activity is appropriate. Appearance is casual. Speech is WNL. Mood is euthymic. Affect is congruent. Thoughts are linear and logical. No evidence of psychosis. Client Response/Progress/Benefit: []Pt did well to remain an engaged participant AEB providing input during small group discussion and engaging in activity. Activity involved working with peers to answer questions related to psychoeducation on cognitive distortions and practicing reframing distorted thoughts. Pt collaborated with the group to determine the answers. Able to identify the impact distortions has on pt?s mental health. Connected with jumping to conclusions as most harmful distortion to their mental health. Benefited from rehearsing ways to challenge/reframe cognitive distortions and by gaining increased insight into examples/definitions of 10 most common cognitive distortions. Will continue IOP to continue use of healthy coping, build confidence, and prevent decompensation.
--- NOTE | 2023-09-01 15:34 | BH.MDN ---
Multi-Disciplinary Note Note 45-min Individual: Time Started:: 12:09 Date: 09/01/23 Purpose of session/treatment goals addressed:: To address current stressors and discuss strategies to help cope with these stressors. Another goal was to discuss discharge and aftercare. Eye Contact:: Good Motor Activity:: Appropriate Appearance:: Casual Speech:: Appropriate Mood:: Euthymic Affect:: Congruent Thoughts:: Linear, Logical and No evidence of hallucinations/delusions noted Staff Interventions:: motivational interviewing, mindfulness skills, strengths perspective and reviewed DSM-5 Client Response:: Pt responded well to session, open to meeting with therapist. Pt reports that she has had a difficult past two weeks due to illness and being informed that her employer may not honor her FMLA. Shared that she has however done well to cope with these stressors and remain emotionally regulated. Described taking time to engage in more self-care, continue to maintain healthier boundaries with her children which has led to reduction in inappropriate guilt. Noted advocating for herself with her employer to fight to have her FMLA and wage increase honored prior to committing to returning to work. Pt reflected that her biggest accomplishment has been growth in being able to sit with the uncomfortable and not engage in reassurance seeking when it come to her relationship. Reports reduced conflict and improved trust as a result. Pt recognizes that she can benefit from continuing to work on her self-esteem, trauma work, breaking the cycle of unhealthy relationships, and sitting with uncomfortable emotions rather than avoiding them. Plans to follow-up with [facility] for outpatient counseling and is established with [facility] for ongoing medication management. Risks/Concerns:: Pt denies any suicidal ideations, plan, or intent as of 09/01/23. Progress Toward Goals/Plan:: Pt will discharge from [facility] tx today as pt has accomplished her tx goals. Pt?s overall symptom reduction is 39% since admission with anger decreasing by 50%, depression decreasing by 13%, obsessive thoughts decreasing by 75%, and anxiety decreasing by 50%. Pt has been encouraged to continue with outpatient counseling through [facility]. Pt will continue with [facility] for medication management. Time Stopped:: 12:49
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
== END 2023-09-04 06:44 | disposition home or self-care (01) ==
LOC: BHIOP 06:57
PROVIDERS: PCP Internal Medicine; Referring Provider Psychiatry & Neurology Psychiatry; Visit Provider Psychiatry & Neurology Psychiatry
DX: F43.10 Post-traumatic stress disorder, unspecified (principal); F33.2 Major depressive disorder, recurrent severe without psychotic features; F41.1 Generalized anxiety disorder
CPT/HCPCS: H2020; S9480; 90832; 90834

== ENCOUNTER → 2023-08-14 | Outpatient (CLI) | payer MEDICAID, SELFPAY ==
[2023-08-14 16:01] LABS: Anion Gap 4 (5-15); BUN 11 mg/dL (7-18); Calcium,Total 9.2 mg/dL (8.5-10.1); Chloride 105 mmol/L (98-107); Creatinine, Serum 0.79 mg/dL (0.55-1.02); EST Glomerular Filtration Rate 85 mL/min (>60); Est Glom Filt Rate - Afr Amer 102 mL/min (>60); Glucose 98 mg/dL (74-106); Potassium 4.3 mmol/L (3.5-5.1); Sodium Level 139 mmol/L (136-145)
== END | disposition home or self-care (01) ==
LOC: BIMLAB 14:08
PROVIDERS: PCP Internal Medicine; Visit Provider Internal Medicine
DX: I10 Essential (primary) hypertension (principal)
CPT/HCPCS: 36415; 80048

== ENCOUNTER → 2023-08-16 | Outpatient (CLI) | payer MEDICAID, SELFPAY ==
[2023-08-16 12:47] LABS: HIV - WCH Non-Reactive (Nonreactive); Hepatitis C Antibody Non-Reactive (Nonreactive); Syphilis Antibodies Non-reactive
== END | disposition home or self-care (01) ==
PROVIDERS: PCP Internal Medicine; Referring Provider Nurse Practitioner Women's Health; Visit Provider Nurse Practitioner Women's Health
DX: Z11.3 Encounter for screening for infections with a predominantly sexual mode of transmission (principal); Z20.2 Contact with and (suspected) exposure to infections with a predominantly sexual mode of transmission
CPT/HCPCS: 36415; 86695; 86696; 86703; 86780; 86803; 87491; 87591

== ENCOUNTER → 2024-02-05 | Outpatient (CLI) | payer MEDICAID, SELFPAY ==
--- NOTE | 2024-02-05 07:25 | BI_ITS ---
MAMMOGRAPHY - BILATERAL SCREENING REASON FOR EXAM: Female, 43 years old. Routine annual screening examination. PERTINENT HISTORY: Grandmother with breast cancer. History of prior left breast biopsy. TECHNIQUE: Digital bilateral breast karina (3D mammographic acquisition) in the CC and MLO projections. 2-D mediolateral oblique (MLO) and craniocaudad (CC) views of both breasts were obtained. CAD: Full Field Digital Mammography with Computer Added Detection was performed. COMPARISON: Comparison is made with prior study October 02, 2020. FINDINGS: Breast Composition: The breasts are heterogeneously dense, which may obscure small masses. There are no dominant masses or suspicious calcifications. A tissue clip marker is seen in the slightly upper lateral anterior aspect of the left breast. No other significant abnormalities are identified. There has been no significant change since the prior study. BI/SCRN MAMM (CAD)W/KARINA BILAT IMPRESSION: Stable bilateral screening mammogram. Yearly follow-up mammogram recommended. (A) ASSESSMENT CATEGORY: BIRADS Category 2: Benign. A letter regarding these results will be sent to the patient by the facility within 30 days. Approximately 10% of breast cancers are not detected by mammography. A normal mammogram should not delay biopsy of a clinically suspicious abnormality. [id number] Electronically Signed: Dustin Van MD at 8:24 EDT ,
[2024-02-05 07:56] LABS: Absolute Lymphocyte Count 2.31 X10^3/uL (0.83-4.51); Absolute Neutrophil Count 5.2 X10^3/uL (2.0-7.7); Basophil# 0.07 X10^3/uL; Basophil% 0.8 % (0-1); Eosinophil# 0.23 X10^3/uL; Eosinophils% 2.8 % (0-5); Hematocrit 44.1 % (37-47); Hemoglobin 14.6 g/dL (12.0-15.0); Lymphocyte # 2.31 X10^3/ul (0.83-4.51); Lymphocyte % 27.8 % (19-41); Mean Corp Hgb Conc 33.1 g/dL (32-36); Mean Corpuscular Hgb 29.8 pg (27.0-32.0); Mean Platelet Vol. 9.4 fl (6.2-12.0); Monocyte# 0.53 X10^3/uL; Monocyte% 6.4 % (0-10); NRBC Flagged by Analyzer 0 % (0-5); Neutrophil # 5.15 X10^3/uL (2.7-7.7); Platelet Count 343 K/mm3 (150-450); RBC Distribution Width SD 39.8 fl (35.1-43.9); White Blood Count 8.3 K/mm3 (4.4-11.0)
[2024-02-05 08:25] LABS: AST(SGOT) 17 U/L (15-37); Alanine Aminotransfer ALT/SGPT 22 U/L (13-56); Albumin, Serum 3.8 g/dL (3.2-5.0); Alkaline Phosphatase 56 U/L (45-117); Anion Gap 5 (5-15); BUN 10 mg/dL (7-18); Calcium,Total 9.2 mg/dL (8.5-10.1); Chloride 106 mmol/L (98-107); Cholesterol 171 mg/dL (200); Creatinine, Serum 0.83 mg/dL (0.55-1.02); EST Glomerular Filtration Rate 79 mL/min (>60); Est Glom Filt Rate - Afr Amer 96 mL/min (>60); Glucose 90 mg/dL (74-106); High Density Lipoprotein 58 mg/dL; Potassium 3.5 mmol/L (3.5-5.1); Protein, Total 7.8 g/dL (6.4-8.2); Sodium Level 139 mmol/L (136-145); Triglycerides 145 mg/dL; Very Low Density Lipoprotein 29 mg/dL (5-40)
[2024-02-05 09:25] LABS: Vitamin D,25 Hydroxy 26.4 ng/mL
== END | disposition home or self-care (01) ==
PROVIDERS: PCP Internal Medicine; Referring Provider Nurse Practitioner Women's Health; Visit Provider Nurse Practitioner Women's Health
DX: Z12.31 Encounter for screening mammogram for malignant neoplasm of breast (principal); I10 Essential (primary) hypertension; E55.9 Vitamin D deficiency, unspecified
CPT/HCPCS: 36415; 77063; 77067; 80053; 80061; 82306; 85025

== ENCOUNTER → 2024-08-16 | Outpatient (CLI) | payer MEDICAID, SELFPAY ==
[2024-08-16 12:27] LABS: Absolute Lymphocyte Count 2.49 X10^3/uL (0.83-4.51); Absolute Neutrophil Count 6.1 X10^3/uL (2.0-7.7); Basophil# 0.06 X10^3/uL; Basophil% 0.6 % (0-1); Eosinophil# 0.17 X10^3/uL; Eosinophils% 1.8 % (0-5); Hematocrit 46.6 % (37-47); Hemoglobin 15.6 g/dL (12.0-15.0); Lymphocyte # 2.49 X10^3/ul (0.83-4.51); Lymphocyte % 26.9 % (19-41); Mean Corp Hgb Conc 33.5 g/dL (32-36); Mean Corpuscular Hgb 30.6 pg (27.0-32.0); Mean Corpuscular Volume 91.4 fL (81-99); Mean Platelet Vol. 11.3 fl (6.2-12.0); Monocyte# 0.38 X10^3/uL; Monocyte% 4.1 % (0-10); NRBC Flagged by Analyzer 0 % (0-5); Neutrophil # 6.11 X10^3/uL (2.7-7.7); Neutrophil % 66.2 % (47-70); POSITIVE COUNT YES; RBC Distribution Width CV 12.2 % (11.6-14.6); White Blood Count 9.3 K/mm3 (4.4-11.0)
[2024-08-16 12:28] LABS: Differential Indicated SCAN CRITERIA MET
[2024-08-16 12:58] LABS: ALB/GLOB Ratio 1.3 RATIO (0.9-2.4); AST(SGOT) 18 U/L (<=31); Alanine Aminotransfer ALT/SGPT 18 U/L (<=34); Albumin, Serum 4.6 g/dL (3.5-5.0); Alkaline Phosphatase 69 U/L (35-104); Anion Gap 13 (5-15); BUN 10 mg/dL (4-19); BUN/Creat Ratio 12.8 RATIO (10-20); Calcium,Total 9.7 mg/dL (7.6-11.0); Carbon Dioxide 24.8 mmol/L (21.0-32.0); Chloride 101 mmol/L (98-108); Creatinine, Serum 0.78 mg/dL (0.70-1.20); EST Glomerular Filtration Rate 96 (>60); Globulin 3.5 g/dL (2.2-4.2); Glucose 77 mg/dL (70-99); Potassium 3.3 mmol/L (3.3-5.1); Protein, Total 8.1 g/dL (5.9-8.4); Sodium Level 139 mmol/L (133-145); Total Bilirubin 0.44 mg/dL (0.00-1.30); Vitamin B12 502 pg/mL (180-914); Vitamin D,25 Hydroxy 19.6 ng/mL (30-100)
[2024-08-16 13:08] LABS: Differential Comment SCANNED; Platelet Estimate ADEQUATE (ADEQ)
== END | disposition home or self-care (01) ==
LOC: BIMLAB 10:10
PROVIDERS: PCP Internal Medicine; Referring Provider Physician Assistant; Visit Provider Physician Assistant
DX: R53.83 Other fatigue (principal); E55.9 Vitamin D deficiency, unspecified
CPT/HCPCS: 36415; 80053; 82306; 82607; 84443; 85025

== ENCOUNTER → 2024-09-12 | Outpatient (CLI) | payer MEDICAID, SELFPAY ==
--- NOTE | 2024-09-12 14:00 | RAD_ITS ---
PROCEDURE: CHEST PA AND LATERAL 09/12/2024 REASON FOR EXAM: FEVER, WHEEZING TECHNIQUE: Frontal and lateral views of the chest. COMPARISON: None available FINDINGS: The lungs appear clear. Pulmonary vascularity appears within limits. No pneumothorax or pleural effusion. The cardiac and mediastinal contours appear within limits. The visualized osseous structures appear within limits. RAD/Chest PA and Lateral IMPRESSION: No evidence of acute disease. Reading Location: [id number]
[2024-09-12 16:15] LABS: Absolute Neutrophil Count 6.1 X10^3/uL (2.0-7.7); Basophil# 0.04 X10^3/uL; Basophil% 0.4 % (0-1); Eosinophil# 0.24 X10^3/uL; Eosinophils% 2.6 % (0-5); Hematocrit 43.6 % (37-47); Hemoglobin 14.9 g/dL (12.0-15.0); Lymphocyte % 27.7 % (19-41); Mean Corp Hgb Conc 34.2 g/dL (32-36); Mean Corpuscular Hgb 30.3 pg (27.0-32.0); Mean Corpuscular Volume 88.6 fL (81-99); Mean Platelet Vol. 9.6 fl (6.2-12.0); Monocyte# 0.39 X10^3/uL; Monocyte% 4.2 % (0-10); NRBC Flagged by Analyzer 0 % (0-5); Neutrophil % 64.9 % (47-70); Platelet Count 372 K/mm3 (150-450); RBC Distribution Width CV 12.4 % (11.6-14.6); RBC Distribution Width SD 40.5 fl (35.1-43.9); Red Blood Count 4.92 M/mm3 (4.2-5.4); White Blood Count 9.4 K/mm3 (4.4-11.0)
[2024-09-12 17:30] LABS: ALB/GLOB Ratio 1.3 RATIO (0.9-2.4); AST(SGOT) 25 U/L (<=31); Alanine Aminotransfer ALT/SGPT 23 U/L (<=34); Albumin, Serum 4.1 g/dL (3.5-5.0); Alkaline Phosphatase 65 U/L (35-104); Anion Gap 12 (5-15); BUN 12 mg/dL (4-19); Calcium,Total 9.4 mg/dL (7.6-11.0); Chloride 101 mmol/L (98-108); EST Glomerular Filtration Rate 93 (>60); Globulin 3.2 g/dL (2.2-4.2); Glucose 139 mg/dL (70-99); Potassium 3.4 mmol/L (3.3-5.1); Protein, Total 7.3 g/dL (5.9-8.4); Sodium Level 139 mmol/L (133-145); Total Bilirubin 0.56 mg/dL (0.00-1.30)
[2024-09-13 11:28] LABS: Hemoglobin A1c 5.2 % (<=5.6); Pro- Brain NATRIURETIC PEPTIDE < 36 pg/mL (<=450)
== END | disposition home or self-care (01) ==
PROVIDERS: PCP Internal Medicine; Referring Provider Internal Medicine; Visit Provider Internal Medicine
DX: I10 Essential (primary) hypertension (principal); F32.A Depression, unspecified; F41.9 Anxiety disorder, unspecified; R53.81 Other malaise; R53.83 Other fatigue; R06.02 Shortness of breath; R06.2 Wheezing; R73.9 Hyperglycemia, unspecified
CPT/HCPCS: 36415; 71046; 80053; 83036; 83880; 84439; 84443; 85025

== ENCOUNTER → 2025-02-28 | Outpatient (CLI) | payer MEDICAID, SELFPAY ==
[2025-02-28 13:39] LABS: AST(SGOT) 21 U/L (<=31); Alanine Aminotransfer ALT/SGPT 20 U/L (<=34); Albumin, Serum 4.1 g/dL (3.5-5.0); Alkaline Phosphatase 65 U/L (35-104); Anion Gap 13 (5-15); BUN 11 mg/dL (4-19); BUN/Creat Ratio 13.4 RATIO (10-20); Calcium,Total 9.5 mg/dL (7.6-11.0); Carbon Dioxide 22.4 mmol/L (21.0-32.0); Chloride 102 mmol/L (98-108); Cholesterol 189 mg/dL (<=200); Globulin 3.3 g/dL (2.2-4.2); Glucose 92 mg/dL (70-99); Low Density Lipoprotein Calc. 115 mg/dL; Potassium 3.5 mmol/L (3.3-5.1); Triglycerides 149 mg/dL; Very Low Density Lipoprotein 30 mg/dL (5-40); Vitamin D,25 Hydroxy 28.6 ng/mL (30-100); cholesterol:hdl ratio screen 4.27
== END | disposition home or self-care (01) ==
LOC: BIMLAB 08:44
PROVIDERS: PCP Internal Medicine; Referring Provider Internal Medicine; Visit Provider Internal Medicine
DX: I10 Essential (primary) hypertension (principal); E55.9 Vitamin D deficiency, unspecified
CPT/HCPCS: 36415; 80053; 80061; 82306

== ENCOUNTER → 2025-03-11 | Outpatient (CLI) | payer MEDICAID, SELFPAY ==
--- NOTE | 2025-03-11 15:45 | BI_ITS ---
EXAM: SCRN MAMM (CAD)W/KARINA BILAT DATE: 03/11/2025 CLINICAL HISTORY: F, Age 44 y/o , BREAST CANCER SCREENING Routine screening TECHNIQUE: Procedure Code: [id number] Modality: MG Procedure: SCRN MAMM (CAD)W/KARINA BILAT COMPARISON: Prior exam(s) dated 02/05/2024. FINDINGS: TISSUE DENSITY: The breasts are heterogeneously dense, which may obscure small masses. Bilateral Breast Mammographic Findings: No significant masses, calcifications or other abnormalities are identified. Stable well-defined 1 cm nodule in the central posterior left breast which has been previously evaluated by ultrasound. No new suspicious findings, no interval change BI/SCRN MAMM (CAD)W/KARINA BILAT IMPRESSION: Stable screening mammogram, no suspicious findings OVERALL FINAL ASSESSMENT BI-RADS 2: BENIGN RECOMMENDATION: Routine annual follow-up in 1 Year Additional Recommendation none A letter with findings and recommendations will be mailed to the patient. Reading Location: [id number]
== END | disposition home or self-care (01) ==
LOC: OPBI 15:34
PROVIDERS: PCP Internal Medicine; Referring Provider Internal Medicine; Visit Provider Internal Medicine
DX: Z12.31 Encounter for screening mammogram for malignant neoplasm of breast (principal)
CPT/HCPCS: 77063; 77067